=== PATIENT | female | born 1945 | race African-American/Black ===

== ENCOUNTER 2018-07-30 05:04 | Inpatient (IN) | payer MEDICARE, MEDICAID ==
[~2018-07-30] VITALS: Ht 167.6 cm; Wt 98.6 kg
[2018-07-30] VITALS (61 sets, daily range): BP systolic 108–191; BP diastolic 49–94
[2018-07-30 05:34] LABS: BASOPHILS % 1.1 % (0.0-2.0); EOSINOPHILS % 2.4 % (0.0-5.0); HEMATOCRIT. 41.8 % (36.0-48.0); HEMOGLOBIN. 14.2 g/dL (12.0-16.0); LYMPHOCYTES % 25.5 % (20.0-50.0); MEAN CORPUSCULAR HEMOGLOBIN 29.6 pg (28.0-32.0); MEAN CORPUSCULAR VOLUME 87.2 fL (81.0-99.0); MEAN PLATELET VOLUME 9.3 fl (7.4-10.4); MONOCYTES % 9.9 % (2.0-8.0); NEUTROPHILS % 61.1 % (40.0-76.0); PLATELET 242 x1000/uL (130-400); RED BLOOD CELL COUNT 4.79 mill/uL (4.2-5.4); RED CELL DISTRIBUTION WIDTH 14.1 % (11.6-14.6)
[2018-07-30 05:41] LABS: INR 0.9; PROTHROMBIN TIME 9.4 sec (9.1-11.1)
[2018-07-30 05:44] LABS: CHLORIDE 101 mEq/L (98-107); ETHANOL BLOOD < 10 mg/dL
[2018-07-30 05:51] LABS: LDL CHOLESTEROL 138 mg/dL (5-100)
[2018-07-30] MEDS ORDERED: ALTEPLASE 100MG/VIAL IV STA ×2 (05:57→06:32)
[2018-07-30] MEDS ORDERED: ALTEPLASE IV STA (05:57)
[2018-07-30] MEDS ORDERED: ASPIRIN 81MG TABLET PO ONE (06:00)
[2018-07-30] MEDS ORDERED: HYDRALAZINE 20MG/ML VIAL IV ONE (06:30)
[2018-07-30] MEDS ORDERED: ALTEPLASE 81 MG in BAG 1 EACH IV NR (06:45)
[2018-07-30 07:43] LABS: CLARITY URINE CLEAR (CLEAR); COLOR URINE YELLOW (YELLOW); KETONES URINE NEGATIVE (NEGATIVE); LEUKOCYTE ESTERASE URINE NEGATIVE (NEGATIVE); NITRITE URINE NEGATIVE (NEGATIVE); OCCULT BLOOD URINE NEGATIVE (NEGATIVE); PH URINE 5.5 (4.5-8.0); PROTEIN URINE 1+ (NEGATIVE); SPECIFIC GRAVITY URINE 1.005 (1.005-1.030); UROBILINOGEN URINE 0.2 E.U./dL (0.2-1.0)
[2018-07-30 07:56] LABS: *AMPHETAMINES SCREEN URINE NEGATIVE (NEGATIVE); *BARBITURATES SCREEN URINE NEGATIVE (NEGATIVE); *BENZODIAZEPINES SCREEN URINE NEGATIVE (NEGATIVE); *COCAINE SCREEN URINE NEGATIVE (NEGATIVE); CANNABINOID URINE SCREEN NEGATIVE (NEGATIVE); METHADONE URINE SCREEN NEGATIVE (NEGATIVE); OPIATES URINE SCREEN NEGATIVE (NEGATIVE); PHENCYCLIDINE URINE SCREEN NEGATIVE (NEGATIVE)
[2018-07-30] MEDS ORDERED: HYDRALAZINE 20MG/ML VIAL IV PRN (09:30)
[2018-07-30] MEDS ORDERED: ONDANSETRON HCL 4MG/2ML INJ IV PRN (10:30)
[2018-07-30] MEDS ORDERED: NA PHOS,M-B/NA PHOS,DI-BA ENEMA 118ML PR PRN (10:30)
[2018-07-30] MEDS ORDERED: DEXTROSE 50% WATER 50ML SYRINGE IV PRN ×2 (10:30)
[2018-07-30] MEDS ORDERED: DOCUSATE SODIUM 100MG CAPSULE PO PRN (10:30)
[2018-07-30] MEDS ORDERED: GUAIFENESIN 200MG/10ML SUGAR FREE UDC PO PRN (10:30)
[2018-07-30] MEDS ORDERED: IPRATROPIUM/ALBUTEROL 0.5-3(2.5)MG/3ML NEB INH PRN (10:30)
[2018-07-30] MEDS ORDERED: ZOLPIDEM TARTRATE 5MG TABLET PO PRN (10:30)
[2018-07-30] MEDS ORDERED: TRAMADOL 50MG TABLET PO PRN (10:30)
[2018-07-30] MEDS ORDERED: MAGNESIUM/ALUMINUM HYDROXIDE/SIMETHICONE 30ML UDC PO PRN (10:30)
[2018-07-30] MEDS ORDERED: ACETAMINOPHEN 325MG TABLET PO PRN (10:30)
[2018-07-30] MEDS ORDERED: NITROGLYCERIN 0.4MG TABLET SL SL PRN (10:45)
[2018-07-30] MEDS: BLOOD SUGAR DIAGNOSTIC STRIP TEST SCH ×3 (11:30→21:37)
[2018-07-30] MEDS ORDERED: BLOOD SUGAR DIAGNOSTIC STRIP TEST SCH (11:30)
[2018-07-30] MEDS ORDERED: INSULIN LISPRO 100 UNITS/ML SUBCUT SCH (12:00)
[2018-07-30] MEDS: INSULIN LISPRO 100 UNITS/ML SUBCUT SCH ×3 (12:58→21:46)
[2018-07-30] MEDS: CLONIDINE 0.1MG TABLET PO PRN (13:59)
[2018-07-30] MEDS ORDERED: LORAZEPAM 2MG/ML CPJ IV SCH (14:15)
[2018-07-30] MEDS ORDERED: LOVA20TA2 MT (16:01)
[2018-07-30] MEDS ORDERED: HYDR10SY15 PO (16:07)
[2018-07-30] MEDS ORDERED: ASPI-1158 MT (16:08)
[2018-07-30] MEDS ORDERED: LOSA50TA20 MT (16:12)
[2018-07-30] MEDS ORDERED: AMLO10TA80 MT (16:16)
[2018-07-30] MEDS ORDERED: LEVVL SQ (16:18)
[2018-07-30] MEDS ORDERED: GABA-529 MT (16:20)
[2018-07-30] MEDS ORDERED: DORZ10DR17 OP (16:26)
[2018-07-30] MEDS ORDERED: INSU100I7 SQ (16:51)
[2018-07-30] MEDS ORDERED: FLUT16SP15 BOTHNSTRLS (16:55)
[2018-07-30] MEDS ORDERED: LATA2.5D2 EACHEYE (16:58)
[2018-07-30 19:18] LABS: CREATINE KINASE 47 IU/L (26-192); CREATINE KINASE MB FRACTION < 1.0 ng/mL (0.5-3.6); T4 FREE 1.19 ng/dL (0.76-1.46)
[2018-07-30 19:37] LABS: FOLIC ACID (FOLATE) SERUM 18.6 ng/mL (>5.38)
[2018-07-30] MEDS: FAMOTIDINE 20MG TABLET PO SCH (21:37)
[2018-07-30] MEDS: ATORVASTATIN CALCIUM 10MG TABLET PO SCH (21:37)
[2018-07-30] MEDS: DORZOLAMIDE 2% OPHTH 10 ML BOTTLE BOTHEYE SCH (21:37)
[2018-07-30] MEDS: LATANOPROST 0.005% OPHTH DROPS 2.5ML BOTHEYE SCH (21:37)
[2018-07-30] MEDS: INSULIN GLARGINE UD 100 UNITS/ML SYR SUBCUT SCH (21:47)
[2018-07-30 23:33] LABS: CREATINE KINASE 44 IU/L (26-192); CREATINE KINASE MB FRACTION < 1.0 ng/mL (0.5-3.6)
[2018-07-31] VITALS (48 sets, daily range): BP systolic 107–179; BP diastolic 55–88
[2018-07-31] MEDS: BLOOD SUGAR DIAGNOSTIC STRIP TEST SCH ×4 (06:15→21:37)
[2018-07-31] MEDS ORDERED: INSULIN LISPRO 100 UNITS/ML SUBCUT SCH (06:30)
[2018-07-31] MEDS: INSULIN LISPRO 100 UNITS/ML SUBCUT SCH ×6 (06:40→21:37)
[2018-07-31] MEDS: FAMOTIDINE 20MG TABLET PO SCH ×2 (08:38→21:36)
[2018-07-31] MEDS: AMLODIPINE 10MG TABLET PO SCH (08:39)
[2018-07-31] MEDS: DORZOLAMIDE 2% OPHTH 10 ML BOTTLE BOTHEYE SCH ×2 (08:39→21:36)
[2018-07-31] MEDS: LOSARTAN POTASSIUM 50 MG TABLET PO SCH (08:39)
[2018-07-31] MEDS ORDERED: CLOPIDOGREL 75MG TABLET PO SCH (09:00)
[2018-07-31] MEDS ORDERED: ENOXAPARIN 30MG/0.3ML SYR SUBCUT SCH (09:00)
[2018-07-31] MEDS: CLOPIDOGREL 75MG TABLET PO SCH (18:28)
[2018-07-31] MEDS: CLONIDINE 0.1MG TABLET PO PRN (20:47)
[2018-07-31] MEDS: LATANOPROST 0.005% OPHTH DROPS 2.5ML BOTHEYE SCH (21:36)
[2018-07-31] MEDS: ATORVASTATIN CALCIUM 10MG TABLET PO SCH (21:36)
[2018-07-31] MEDS: INSULIN GLARGINE UD 100 UNITS/ML SYR SUBCUT SCH (21:37)
[2018-08-01] VITALS (10 sets, daily range): BP systolic 120–153; BP diastolic 57–80
[2018-08-01] MEDS: BLOOD SUGAR DIAGNOSTIC STRIP TEST SCH ×4 (06:43→21:24)
[2018-08-01] MEDS: INSULIN LISPRO 100 UNITS/ML SUBCUT SCH ×7 (07:40→21:00)
[2018-08-01] MEDS: AMLODIPINE 10MG TABLET PO SCH (09:21)
[2018-08-01] MEDS: FAMOTIDINE 20MG TABLET PO SCH ×2 (09:21→21:06)
[2018-08-01] MEDS: LOSARTAN POTASSIUM 50 MG TABLET PO SCH (09:21)
[2018-08-01] MEDS: DORZOLAMIDE 2% OPHTH 10 ML BOTTLE BOTHEYE SCH ×2 (09:22→21:07)
[2018-08-01] MEDS: CLOPIDOGREL 75MG TABLET PO SCH (09:22)
[2018-08-01] MEDS: ATORVASTATIN CALCIUM 10MG TABLET PO SCH (21:05)
[2018-08-01] MEDS: LATANOPROST 0.005% OPHTH DROPS 2.5ML BOTHEYE SCH (21:07)
[2018-08-01] MEDS: INSULIN GLARGINE UD 100 UNITS/ML SYR SUBCUT SCH (21:20)
[2018-08-02 00:18] VITALS: BP 175/84
[2018-08-02 04:00] VITALS: BP 170/72
[2018-08-02] MEDS: BLOOD SUGAR DIAGNOSTIC STRIP TEST SCH ×2 (07:40→12:40)
[2018-08-02 08:00] VITALS: BP 166/82
[2018-08-02] MEDS: INSULIN LISPRO 100 UNITS/ML SUBCUT SCH ×4 (08:10→13:10)
[2018-08-02] MEDS: FAMOTIDINE 20MG TABLET PO SCH (08:56)
[2018-08-02] MEDS: CLOPIDOGREL 75MG TABLET PO SCH (08:56)
[2018-08-02] MEDS: CLONIDINE 0.1MG TABLET PO PRN (08:57)
[2018-08-02] MEDS: AMLODIPINE 10MG TABLET PO SCH (08:57)
[2018-08-02] MEDS: LOSARTAN POTASSIUM 50 MG TABLET PO SCH (08:57)
[2018-08-02] MEDS: DORZOLAMIDE 2% OPHTH 10 ML BOTTLE BOTHEYE SCH (09:00)
[2018-08-02 12:00] VITALS: BP 150/82
[2018-08-02] MEDS ORDERED: HYDRALAZINE HCL 50MG TABLET PO SCH (14:00)
[2018-08-02 15:32] VITALS: BP 150/82
== END 2018-08-02 16:15 | DRG 45 ==
LOC: ER 05:04 → MICUNO 06:07 → EDBEDREQTM 06:08 → EDBEDREQ 06:08 → EDBEDREQSVC 06:08 → ENRESERV 08:01 → 7WST 08-01 05:21
PROVIDERS: ADMIT Internal Medicine; ATTEND Internal Medicine
DX: I63.9 Cerebral infarction, unspecified (principal); E11.36 Type 2 diabetes mellitus with diabetic cataract; E11.649 Type 2 diabetes mellitus with hypoglycemia without coma; E11.65 Type 2 diabetes mellitus with hyperglycemia; G81.91 Hemiplegia, unspecified affecting right dominant side; I10 Essential (primary) hypertension; E66.9 Obesity, unspecified; Z68.35 Body mass index [BMI] 35.0-35.9, adult; R47.1 Dysarthria and anarthria; R47.01 Aphasia; E78.5 Hyperlipidemia, unspecified; E78.00 Pure hypercholesterolemia, unspecified; E87.6 Hypokalemia; H54.62 Unqualified visual loss, left eye, normal vision right eye; Z79.4 Long term (current) use of insulin; Z82.3 Family history of stroke; Z87.442 Personal history of urinary calculi; Z98.41 Cataract extraction status, right eye; Z79.82 Long term (current) use of aspirin; Z79.899 Other long term (current) drug therapy
CPT/HCPCS: 36415; 70544; 70553; 71045; 80061; 80305; 82550; 82553; 82607; 82746; 82962; 83036; 83721; 84439; 84443; 84481; 84484; 92523; 92610; 93005; 93306; 93880; 93970; 96374; 97112; 97116; 97163; 97166; 97530; 97535; 99291; G0482; J0360; J1815; J2060; J2405; J2997

== ENCOUNTER 2018-09-07 11:59 | Emergency (ER) | payer MEDICARE, MEDICAID ==
[~2018-09-07] VITALS: Ht 167.6 cm; Wt 90.0 kg
[~2018-09-07 11:59] MED LIST: AMLO10TA80 MT; ASPI-1158 MT; DORZ10DR17 OP; FLUT16SP15 BOTHNSTRLS; GABA-529 MT; HYDR10SY15 PO; INSU100I7 SQ; LATA2.5D2 EACHEYE; LEVVL SQ; LOSA50TA20 MT; LOVA20TA2 MT
[2018-09-07] MEDS ORDERED: MORPHINE SULFATE 4 MG/ML CPJ (NOT FOR IM USE) IV ONE (14:45)
[2018-09-07] MEDS ORDERED: MORPHINE SULFATE 10 MG/ML CPJ IV NR (15:09)
[2018-09-07 15:41] LABS: BASOPHILS % 0.5 % (0.0-2.0); EOSINOPHILS % 0.1 % (0.0-5.0); HEMATOCRIT. 36.8 % (36.0-48.0); HEMOGLOBIN. 12.5 g/dL (12.0-16.0); LYMPHOCYTES % 10.5 % (20.0-50.0); MEAN PLATELET VOLUME 9.5 fl (7.4-10.4); MONOCYTES % 7.8 % (2.0-8.0); NEUTROPHILS % 81.1 % (40.0-76.0); PLATELET 284 x1000/uL (130-400); RED BLOOD CELL COUNT 4.18 mill/uL (4.2-5.4); RED CELL DISTRIBUTION WIDTH 14.5 % (11.6-14.6)
[2018-09-07 15:42] LABS: CHLORIDE 102 mEq/L (98-107)
[2018-09-07] MEDS ORDERED: POTASSIUM CHLORIDE 20MEQ TABLET SR PO ONE (16:30)
[2018-09-07 17:57] LABS: CLARITY URINE CLOUDY (CLEAR); COLOR URINE YELLOW (YELLOW); KETONES URINE TRACE (NEGATIVE); LEUKOCYTE ESTERASE URINE TRACE (NEGATIVE); NITRITE URINE NEGATIVE (NEGATIVE); OCCULT BLOOD URINE NEGATIVE (NEGATIVE); PROTEIN URINE 3+ (NEGATIVE); SPECIFIC GRAVITY URINE 1.014 (1.005-1.030); UROBILINOGEN URINE 0.2 E.U./dL (0.2-1.0)
[2018-09-07 18:30] VITALS: BP 189/77
== END 2018-09-07 19:34 | disposition home or self-care (01) ==
LOC: ER 12:50
DX: K59.00 Constipation, unspecified (principal); M54.5 Low back pain; E11.9 Type 2 diabetes mellitus without complications; I10 Essential (primary) hypertension; Z86.73 Personal history of transient ischemic attack (TIA), and cerebral infarction without residual deficits; Z79.899 Other long term (current) drug therapy
CPT/HCPCS: 36415; 74018; 80053; 81003; 82962; 85025; 93005; 96374; 99284; J2270

== ENCOUNTER 2018-11-08 10:44 | Emergency (ER) | payer MEDICARE, MEDICAID ==
[~2018-11-08] VITALS: Ht 170.2 cm; Wt 102.0 kg
[2018-11-08] MEDS ORDERED: MORPHINE SULFATE 4 MG/ML CPJ (NOT FOR IM USE) IV STA (11:37)
[2018-11-08] MEDS ORDERED: SODIUM CHLORIDE 0.9% 1,000 ML IV ONE (11:37)
[2018-11-08] MEDS ORDERED: ONDANSETRON HCL 4MG/2ML INJ IV STA (11:37)
[2018-11-08 12:20] LABS: BASOPHILS % 0.5 % (0.0-2.0); EOSINOPHILS % 0.4 % (0.0-5.0); HEMATOCRIT. 36.4 % (36.0-48.0); LYMPHOCYTES % 8.8 % (20.0-50.0); MEAN CORPUSCULAR HEMOGLOBIN 29.5 pg (28.0-32.0); MEAN CORPUSCULAR VOLUME 89.3 fL (81.0-99.0); MEAN PLATELET VOLUME 9.3 fl (7.4-10.4); MONOCYTES % 7.3 % (2.0-8.0); PLATELET 223 x1000/uL (130-400); RED BLOOD CELL COUNT 4.08 mill/uL (4.2-5.4); RED CELL DISTRIBUTION WIDTH 15.1 % (11.6-14.6)
[2018-11-08 12:28] LABS: CHLORIDE 106 mEq/L (98-107)
[2018-11-08 16:11] LABS: CLARITY URINE CLEAR (CLEAR); COLOR URINE YELLOW (YELLOW); KETONES URINE NEGATIVE (NEGATIVE); LEUKOCYTE ESTERASE URINE NEGATIVE (NEGATIVE); NITRITE URINE NEGATIVE (NEGATIVE); OCCULT BLOOD URINE NEGATIVE (NEGATIVE); PH URINE 7.5 (4.5-8.0); PROTEIN URINE 1+ (NEGATIVE); SPECIFIC GRAVITY URINE 1.006 (1.005-1.030); UROBILINOGEN URINE 0.2 E.U./dL (0.2-1.0)
[2018-11-08 18:52] VITALS: BP 171/83
== END 2018-11-08 18:54 | disposition home or self-care (01) ==
LOC: ER 10:44
DX: R10.13 Epigastric pain (principal); I31.3 Pericardial effusion (noninflammatory); E87.6 Hypokalemia; E11.65 Type 2 diabetes mellitus with hyperglycemia; I10 Essential (primary) hypertension; N20.0 Calculus of kidney; K57.90 Diverticulosis of intestine, part unspecified, without perforation or abscess without bleeding; Z79.4 Long term (current) use of insulin; Z86.73 Personal history of transient ischemic attack (TIA), and cerebral infarction without residual deficits; Z79.82 Long term (current) use of aspirin
CPT/HCPCS: 36415; 74176; 80053; 81003; 82962; 83690; 85025; 85610; 96361; 96374; 96375; 99284; J2270; J2405; J7030

== ENCOUNTER 2019-01-27 19:32 | Emergency (ER) | payer MEDICARE, MEDICAID ==
[~2019-01-27] VITALS: Ht 152.4 cm; Wt 189.0 kg
[2019-01-28 00:35] VITALS: BP 166/99
== END 2019-01-27 23:27 | disposition home or self-care (01) ==
LOC: ER 19:32
DX: H93.13 Tinnitus, bilateral (principal); E11.9 Type 2 diabetes mellitus without complications; I10 Essential (primary) hypertension; Z79.82 Long term (current) use of aspirin; Z79.899 Other long term (current) drug therapy; Z79.4 Long term (current) use of insulin; Z79.84 Long term (current) use of oral hypoglycemic drugs
CPT/HCPCS: 99283

== ENCOUNTER 2019-03-26 16:38 | Emergency (ER) | payer MEDICARE, MEDICAID ==
[~2019-03-26] VITALS: Ht 152.4 cm; Wt 87.0 kg
[~2019-03-26 16:38] MED LIST changes: -LOSA50TA20 MT; +LOSA50TA41 MT
[2019-03-26] MEDS ORDERED: ACETAMINOPHEN 325MG TABLET PO ONE (21:15)
[2019-03-26 21:16] LABS: CLARITY URINE TURBID (CLEAR); COLOR URINE YELLOW (YELLOW); KETONES URINE NEGATIVE (NEGATIVE); LEUKOCYTE ESTERASE URINE 3+ (NEGATIVE); NITRITE URINE NEGATIVE (NEGATIVE); OCCULT BLOOD URINE NEGATIVE (NEGATIVE); PH URINE 6.5 (4.5-8.0); PROTEIN URINE 3+ (NEGATIVE); SPECIFIC GRAVITY URINE 1.011 (1.005-1.030); UROBILINOGEN URINE 0.2 E.U./dL (0.2-1.0)
[2019-03-26 22:41] VITALS: BP 154/77
== END 2019-03-26 22:42 | disposition home or self-care (01) ==
LOC: ER 16:38
DX: G89.29 Other chronic pain (principal); M54.5 Low back pain; K59.00 Constipation, unspecified; E11.9 Type 2 diabetes mellitus without complications; I10 Essential (primary) hypertension; H40.9 Unspecified glaucoma; Z79.82 Long term (current) use of aspirin; Z79.899 Other long term (current) drug therapy
CPT/HCPCS: 74018; 99284

== ENCOUNTER 2019-04-04 08:27 | Inpatient (IN) | payer MEDICARE, MEDICAID ==
[~2019-04-04] VITALS: Ht 152.4 cm; Wt 89.4 kg
[2019-04-04 09:28] LABS: CHLORIDE 105 mEq/L (98-107)
[2019-04-04 09:30] LABS: BASOPHILS % 0.6 % (0.0-2.0); HEMATOCRIT. 34.8 % (36.0-48.0); HEMOGLOBIN. 11.9 g/dL (12.0-16.0); LYMPHOCYTES % 23.5 % (20.0-50.0); MEAN CORPUSCULAR HEMOGLOBIN 29.6 pg (28.0-32.0); MEAN CORPUSCULAR VOLUME 86.8 fL (81.0-99.0); MEAN PLATELET VOLUME 8.9 fl (7.4-10.4); MONOCYTES % 8.9 % (2.0-8.0); PLATELET 228 x1000/uL (130-400); RED BLOOD CELL COUNT 4.01 mill/uL (4.2-5.4); RED CELL DISTRIBUTION WIDTH 14.5 % (11.6-14.6)
[2019-04-04 09:46] LABS: PROTHROMBIN TIME 9.8 sec (9.6-11.0)
[2019-04-04] MEDS ORDERED: POTASSIUM CHLORIDE 20MEQ TABLET SR PO ONE ×2 (10:15→15:00)
[2019-04-04 10:56] LABS: CLARITY URINE CLOUDY (CLEAR); COLOR URINE YELLOW (YELLOW); KETONES URINE NEGATIVE (NEGATIVE); LEUKOCYTE ESTERASE URINE 2+ (NEGATIVE); NITRITE URINE NEGATIVE (NEGATIVE); OCCULT BLOOD URINE NEGATIVE (NEGATIVE); PROTEIN URINE 1+ (NEGATIVE); SPECIFIC GRAVITY URINE 1.016 (1.005-1.030); UROBILINOGEN URINE 0.2 E.U./dL (0.2-1.0)
[2019-04-04] MEDS ORDERED: IOHEXOL-300 100 ML BOTTLE ONE (11:05)
[2019-04-04] MEDS ORDERED: ONDANSETRON HCL 4MG/2ML INJ IV ONE (11:45)
[2019-04-04] MEDS ORDERED: ONDANSETRON HCL 4MG/2ML INJ IV PRN (12:00)
[2019-04-04] MEDS ORDERED: DEXTROSE 50% WATER 50ML SYRINGE IV PRN (12:00)
[2019-04-04] MEDS ORDERED: KETOROLAC 30MG/ML VIAL IV PRN (12:00)
[2019-04-04] MEDS ORDERED: ACETAMINOPHEN 325MG TABLET PO PRN (12:00)
[2019-04-04] MEDS ORDERED: HYDRALAZINE HCL 10MG TABLET PO ONE (12:00)
[2019-04-04] MEDS ORDERED: CLONIDINE 0.1MG TABLET PO PRN (12:00)
[2019-04-04] MEDS ORDERED: CEFTRIAXONE 1 G PREMIX 50 ML IV SCH (12:31)
[2019-04-04] MEDS ORDERED: OXYCODONE HCL/ACETAMINOPHEN 5/325MG TABLET PO PRN (13:00)
[2019-04-04] MEDS: BLOOD SUGAR DIAGNOSTIC STRIP TEST SCH ×3 (14:47→21:35)
[2019-04-04] MEDS: INSULIN LISPRO 100 UNITS/ML SUBCUT SCH ×2 (14:51→21:00)
[2019-04-04] MEDS: MORPHINE SULFATE 2 MG/ML CPJ (NOT FOR IM USE) IV PRN (15:04)
[2019-04-04] MEDS ORDERED: SODIUM CHLORIDE 0.9% 1,000 ML IV NR (15:13)
[2019-04-04 15:59] VITALS: BP 167/67
[2019-04-04 16:01] VITALS: BP 167/69
[2019-04-04] MEDS ORDERED: POTASSIUM CHLORIDE INJ 40 MEQ in DEXT 5% WATER 250 ML IV NR (16:30)
[2019-04-04] MEDS: ENOXAPARIN 40MG/0.4ML SYR SUBCUT SCH (17:26)
[2019-04-04 20:00] VITALS: BP 144/68
[2019-04-04] MEDS: AMLODIPINE 5MG TABLET PO SCH ×2 (21:00→21:30)
[2019-04-04] MEDS ORDERED: FAMOTIDINE 20MG TABLET PO SCH (21:00)
[2019-04-04] MEDS ORDERED: HYDR-4135 PO (21:18)
[2019-04-04] MEDS ORDERED: NORT10CA PO (21:19)
[2019-04-04] MEDS ORDERED: CLOP75TA4 PO (21:20)
[2019-04-04] MEDS ORDERED: CHOL50004 PO (21:22)
[2019-04-04] MEDS ORDERED: DOCU-266 PO (21:23)
[2019-04-05] VITALS: BP 140/100
[2019-04-05] MEDS ORDERED: NORTRIPTYLINE HCL 10MG CAPSULE PO SCH
[2019-04-05] MEDS ORDERED: LATANOPROST 0.005% OPHTH DROPS 2.5ML EACHEYE SCH
[2019-04-05] MEDS: BRIMONIDINE 0.2% OPHTH DROPS 5ML EACHEYE SCH ×3 (00:08→14:33)
[2019-04-05] MEDS: DORZOLAM/TIMOLOL 2.23/0.68% OPHTH DROPS 10ML EACHEYE SCH ×2 (00:08→09:21)
[2019-04-05] MEDS: MORPHINE SULFATE 2 MG/ML CPJ (NOT FOR IM USE) IV PRN (02:29)
[2019-04-05 04:00] VITALS: BP 166/67
[2019-04-05] MEDS: HYDRALAZINE HCL 50MG TABLET PO SCH ×2 (05:43→14:36)
[2019-04-05] MEDS: GABAPENTIN 100MG CAPSULE PO SCH ×2 (05:43→14:36)
[2019-04-05] MEDS: BLOOD SUGAR DIAGNOSTIC STRIP TEST SCH ×2 (05:44→12:45)
[2019-04-05 07:47] LABS: BASOPHILS % 0.6 % (0.0-2.0); EOSINOPHILS % 2.8 % (0.0-5.0); HEMATOCRIT. 33.3 % (36.0-48.0); HEMOGLOBIN. 11.3 g/dL (12.0-16.0); LYMPHOCYTES % 36.3 % (20.0-50.0); MEAN CORPUSCULAR HEMOGLOBIN 29.7 pg (28.0-32.0); MEAN CORPUSCULAR VOLUME 87.9 fL (81.0-99.0); MEAN PLATELET VOLUME 9.5 fl (7.4-10.4); MONOCYTES % 11.4 % (2.0-8.0); NEUTROPHILS % 48.9 % (40.0-76.0); PLATELET 222 x1000/uL (130-400); RED BLOOD CELL COUNT 3.79 mill/uL (4.2-5.4)
[2019-04-05] MEDS: INSULIN LISPRO 100 UNITS/ML SUBCUT SCH ×2 (07:49→12:45)
[2019-04-05 07:54] LABS: CHLORIDE 108 mEq/L (98-107)
[2019-04-05 08:00] VITALS: BP 138/51
[2019-04-05] MEDS ORDERED: FAMOTIDINE 20MG TABLET PO SCH (11:30)
[2019-04-05 12:00] VITALS: BP 143/55
[2019-04-05] MEDS ORDERED: CEFTRIAXONE 1 G PREMIX 50 ML IV SCH ×2 (12:00→14:00)
[2019-04-05 15:09] LABS: *AMPHETAMINES SCREEN URINE NEGATIVE (NEGATIVE)
[2019-04-05 15:10] LABS: *BARBITURATES SCREEN URINE NEGATIVE (NEGATIVE); *BENZODIAZEPINES SCREEN URINE NEGATIVE (NEGATIVE); *COCAINE SCREEN URINE NEGATIVE (NEGATIVE); METHADONE URINE SCREEN NEGATIVE (NEGATIVE); OPIATES URINE SCREEN NEGATIVE (NEGATIVE); PHENCYCLIDINE URINE SCREEN NEGATIVE (NEGATIVE)
[2019-04-05 15:11] LABS: CANNABINOID URINE SCREEN NEGATIVE (NEGATIVE)
[2019-04-05 16:00] VITALS: BP 149/55
[2019-04-05] MEDS: ENOXAPARIN 40MG/0.4ML SYR SUBCUT SCH (16:33)
[2019-04-05 16:57] VITALS: BP 134/65
== END 2019-04-05 17:45 | disposition home or self-care (01) | DRG 720 ==
LOC: ER 08:27 → 7WST 11:37 → ENRESERV 14:15
PROVIDERS: ADMIT Internal Medicine; ATTEND Internal Medicine
DX: A41.9 Sepsis, unspecified organism (principal); I31.3 Pericardial effusion (noninflammatory); E11.9 Type 2 diabetes mellitus without complications; E87.6 Hypokalemia; E66.9 Obesity, unspecified; K21.9 Gastro-esophageal reflux disease without esophagitis; K57.30 Diverticulosis of large intestine without perforation or abscess without bleeding; I10 Essential (primary) hypertension; K59.00 Constipation, unspecified; N39.0 Urinary tract infection, site not specified; Z86.73 Personal history of transient ischemic attack (TIA), and cerebral infarction without residual deficits; Z71.3 Dietary counseling and surveillance; Z79.899 Other long term (current) drug therapy; Z68.38 Body mass index [BMI] 38.0-38.9, adult
CPT/HCPCS: 36415; 71045; 74177; 80048; 80305; 82962; 83605; 83880; 84132; 84484; 93005; 93306; 93970; 96365; 96375; 97161; 99285; J0696; J1650; J1885; J2270; J2405; J3480; J7050; J7060; Q9967

== ENCOUNTER 2019-04-28 07:43 | Emergency (ER) | payer MEDICARE, MEDICAID ==
[~2019-04-28] VITALS: Ht 152.4 cm; Wt 88.0 kg
[~2019-04-28 07:43] MED LIST changes: +CHOL50004 PO; +CLOP75TA4 PO; +DOCU-266 PO; +HYDR-4135 PO; -INSU100I7 SQ; -LEVVL SQ; +NORT10CA PO
[2019-04-28] MEDS ORDERED: HYDROCODONE/ACETAMINOPHEN 5/325MG TABLET PO ONE (10:00)
[2019-04-28 11:15] LABS: CLARITY URINE TURBID (CLEAR); COLOR URINE DARK YELLOW (YELLOW); KETONES URINE TRACE (NEGATIVE); LEUKOCYTE ESTERASE URINE 2+ (NEGATIVE); NITRITE URINE NEGATIVE (NEGATIVE); OCCULT BLOOD URINE NEGATIVE (NEGATIVE); PROTEIN URINE 2+ (NEGATIVE); SPECIFIC GRAVITY URINE 1.017 (1.005-1.030); UROBILINOGEN URINE 0.2 E.U./dL (0.2-1.0)
[2019-04-28 12:14] VITALS: BP 131/70
== END 2019-04-28 12:15 | disposition home or self-care (01) ==
LOC: ER 07:57
DX: N39.0 Urinary tract infection, site not specified (principal); K59.00 Constipation, unspecified; M54.9 Dorsalgia, unspecified; G89.29 Other chronic pain; M54.5 Low back pain; E11.9 Type 2 diabetes mellitus without complications; I10 Essential (primary) hypertension; H40.9 Unspecified glaucoma; Z86.73 Personal history of transient ischemic attack (TIA), and cerebral infarction without residual deficits; Z79.899 Other long term (current) drug therapy
CPT/HCPCS: 74018; 99284

== ENCOUNTER 2019-05-28 21:50 | Emergency (ER) | payer MEDICARE, MEDICAID ==
[~2019-05-28] VITALS: Ht 152.4 cm; Wt 84.0 kg
[~2019-05-28 21:50] MED LIST changes: +BRIM5DRO6 EACHEYE; +CHOL100044 MT; +CLON0.1T MT; +CLOP75TA33 MT; +DOCU-266 MT; +DORZ10DR8 EACHEYE; +GABA-531 MT; -HYDR-4135 PO; +HYDR100T26 MT; -HYDR10SY15 PO; +HYDR25TA MT; +LOSA100T32 MT; -LOVA20TA2 MT; +NORT10CA MT; -NORT10CA PO
[2019-05-28] MEDS ORDERED: KETOROLAC 30MG/ML VIAL IV STA (22:59)
[2019-05-28] MEDS ORDERED: DEXAMETHASONE 10 MG/ML VIAL IV ONE (23:00)
[2019-05-29] MEDS ORDERED: LABETALOL 5MG/ML SYR 20 MG/4 ML SYRINGE IV ONE (01:00)
[2019-05-29] MEDS ORDERED: HYDROCODONE/ACETAMINOPHEN 10/325MG TABLET PO ONE (05:45)
[2019-05-29 06:19] VITALS: BP 196/79
== END 2019-05-29 06:40 | disposition home or self-care (01) ==
LOC: ER 21:50
DX: M48.00 Spinal stenosis, site unspecified (principal); M54.16 Radiculopathy, lumbar region
CPT/HCPCS: 82962; 96374; 96375; 99283; J1100; J1885; J3490

== ENCOUNTER 2019-11-04 12:48 | Inpatient (IN) | payer MEDICARE, MEDICAID ==
[~2019-11-04] VITALS: Ht 152.4 cm; Wt 98.4 kg
[2019-11-04] MEDS ORDERED: MECLIZINE 25MG TABLET PO ONE (14:00)
[2019-11-04] MEDS ORDERED: ONDANSETRON HCL 4MG/2ML INJ IV ONE (14:00)
[2019-11-04 14:09] LABS: BASOPHILS % 0.7 % (0.0-2.0); EOSINOPHILS % 1.8 % (0.0-5.0); HEMATOCRIT. 39.2 % (36.0-48.0); HEMOGLOBIN. 13.1 g/dL (12.0-16.0); LYMPHOCYTES % 24.1 % (20.0-50.0); MEAN CORPUSCULAR HEMOGLOBIN 29.7 pg (28.0-32.0); MEAN CORPUSCULAR VOLUME 88.5 fL (81.0-99.0); MEAN PLATELET VOLUME 9.9 fl (7.4-10.4); MONOCYTES % 8.9 % (2.0-8.0); NEUTROPHILS % 64.5 % (40.0-76.0); PLATELET 222 x1000/uL (130-400); RED BLOOD CELL COUNT 4.43 mill/uL (4.2-5.4); RED CELL DISTRIBUTION WIDTH 13.6 % (11.6-14.6)
[2019-11-04 14:12] LABS: CHLORIDE 104 mEq/L (98-107)
[2019-11-04 14:15] LABS: INR 0.9; PROTHROMBIN TIME 9.4 sec (9.6-11.0)
[2019-11-04 14:16] LABS: ETHANOL BLOOD < 10 mg/dL
[2019-11-04 14:19] LABS: LDL CHOLESTEROL 194 mg/dL (5-100)
[2019-11-04] MEDS ORDERED: IOHEXOL-350 100 ML BOTTLE ONE (14:54)
[2019-11-04] MEDS ORDERED: POTASSIUM CHLORIDE 20MEQ TABLET SR PO ONE (17:45)
[2019-11-04] MEDS ORDERED: GUAIFENESIN 200MG/10ML SUGAR FREE UDC PO PRN (19:45)
[2019-11-04] MEDS ORDERED: DIPHENHYDRAMINE 50MG/ML VIAL IV PRN (19:45)
[2019-11-04] MEDS ORDERED: DEXTROSE 50% WATER 50ML SYRINGE IV PRN (19:45)
[2019-11-04] MEDS ORDERED: ACETAMINOPHEN 325MG TABLET PO PRN (19:45)
[2019-11-04] MEDS ORDERED: ONDANSETRON HCL 4MG/2ML INJ IV PRN (19:45)
[2019-11-04] MEDS ORDERED: IPRATROPIUM/ALBUTEROL 0.5-3(2.5)MG/3ML NEB NEB PRN (19:45)
[2019-11-04] MEDS ORDERED: HYDRALAZINE 20MG/ML VIAL IV PRN (19:45)
[2019-11-04] MEDS ORDERED: CLONIDINE 0.1MG TABLET PO PRN (19:45)
[2019-11-04] MEDS ORDERED: MAGNESIUM/ALUMINUM HYDROXIDE/SIMETHICONE 30ML UDC PO PRN (19:45)
[2019-11-04] MEDS ORDERED: DOCUSATE SODIUM 100MG CAPSULE PO PRN (19:45)
[2019-11-04] MEDS ORDERED: NA PHOS,M-B/NA PHOS,DI-BA ENEMA 118ML PR PRN (19:45)
[2019-11-04] MEDS ORDERED: BLOOD SUGAR DIAGNOSTIC STRIP TEST SCH (21:00)
[2019-11-04] MEDS ORDERED: MORPHINE SULFATE 2 MG/ML CPJ (NOT FOR IM USE) IV PRN (21:41)
[2019-11-04] MEDS ORDERED: LORAZEPAM 2MG/ML CPJ IV PRN (21:41)
[2019-11-04] MEDS: INSULIN LISPRO 100 UNITS/ML SUBCUT SCH (23:02)
[2019-11-04 23:30] VITALS: BP 118/76
[2019-11-05 02:27] LABS: CREATINE KINASE 51 IU/L (26-192)
[2019-11-05 02:28] LABS: CREATINE KINASE MB FRACTION < 1.0 ng/mL (0.5-3.6)
[2019-11-05 04:00] VITALS: BP 154/65
[2019-11-05] MEDS: HYDROCODONE/ACETAMINOPHEN 10/325MG TABLET PO PRN ×2 (04:16→20:57)
[2019-11-05] MEDS ORDERED: ENOXAPARIN 40MG/0.4ML SYR SUBCUT SCH (06:00)
[2019-11-05] MEDS: SODIUM CHLORIDE 0.9% INJ 3ML FLUSH IVF SCH ×3 (06:36→20:58)
[2019-11-05] MEDS: INSULIN LISPRO 100 UNITS/ML SUBCUT SCH ×4 (06:40→21:01)
[2019-11-05 07:53] LABS: CLARITY URINE CLEAR (CLEAR); COLOR URINE YELLOW (YELLOW); KETONES URINE NEGATIVE (NEGATIVE); LEUKOCYTE ESTERASE URINE NEGATIVE (NEGATIVE); NITRITE URINE NEGATIVE (NEGATIVE); OCCULT BLOOD URINE NEGATIVE (NEGATIVE); PH URINE 6.5 (4.5-8.0); PROTEIN URINE 1+ (NEGATIVE); SPECIFIC GRAVITY URINE 1.027 (1.005-1.030); UROBILINOGEN URINE 0.2 E.U./dL (0.2-1.0)
[2019-11-05 08:00] VITALS: BP 161/64
[2019-11-05 08:09] LABS: *AMPHETAMINES SCREEN URINE NEGATIVE (NEGATIVE)
[2019-11-05 08:10] LABS: *BARBITURATES SCREEN URINE NEGATIVE (NEGATIVE); *BENZODIAZEPINES SCREEN URINE NEGATIVE (NEGATIVE); *COCAINE SCREEN URINE NEGATIVE (NEGATIVE); CANNABINOID URINE SCREEN NEGATIVE (NEGATIVE); METHADONE URINE SCREEN NEGATIVE (NEGATIVE); OPIATES URINE SCREEN PRESUMTIVE POSITIVE (NEGATIVE)
[2019-11-05 08:11] LABS: PHENCYCLIDINE URINE SCREEN NEGATIVE (NEGATIVE)
[2019-11-05] MEDS: BRIMONIDINE 0.2% OPHTH DROPS 5ML BOTHEYE SCH ×2 (10:46→20:46)
[2019-11-05] MEDS: DORZOLAMIDE 2% OPHTH 10 ML BOTTLE BOTHEYE SCH ×2 (10:46→20:46)
[2019-11-05 11:10] LABS: BG BASE EXCESS -0.4 mmol/L (-2.0-2.0); BG CARBOXYHEMOGLOBIN 0.4 % (0.5-1.5); BG DEOXYHEMOGLOBIN 2.1 % (0.0-5.0); BG FRACTION INSPIRED OXYGEN 21; BG HCO3 ACT 23.1 mmol/L (22.0-26.0); BG METHEMOGLOBIN 0.1 % (0.0-1.5); BG OXYGEN SATURATION 97.9 % (92.0-98.5); BG OXYHEMOGLOBIN 97.4 % (94.0-97.0); BG PCO2 33.8 mmHg (35.0-45.0); BG PH 7.452 (7.350-7.450); BG PO2 107.4 mmHg (75.0-100.0); BG SAMPLE SITE RIGHT RADIAL; BG TOTAL HEMOGLOBIN 12.1 g/dL (12.0-18.0); BG VENT MODE ROOM AIR
[2019-11-05 11:20] LABS: BASOPHILS % 0.7 % (0.0-2.0); EOSINOPHILS % 2.7 % (0.0-5.0); HEMATOCRIT. 35.4 % (36.0-48.0); HEMOGLOBIN. 11.8 g/dL (12.0-16.0); LYMPHOCYTES % 25.5 % (20.0-50.0); MEAN CORPUSCULAR HEMOGLOBIN 30.1 pg (28.0-32.0); MEAN CORPUSCULAR VOLUME 89.9 fL (81.0-99.0); MEAN PLATELET VOLUME 10.1 fl (7.4-10.4); MONOCYTES % 11.3 % (2.0-8.0); NEUTROPHILS % 59.8 % (40.0-76.0); PLATELET 203 x1000/uL (130-400); RED BLOOD CELL COUNT 3.93 mill/uL (4.2-5.4); RED CELL DISTRIBUTION WIDTH 13.5 % (11.6-14.6)
[2019-11-05] MEDS ORDERED: DOCUSATE SODIUM 100MG CAPSULE PO PRN ×2 (11:30)
[2019-11-05 12:00] VITALS: BP 117/64
[2019-11-05 12:08] LABS: CHLORIDE 107 mEq/L (98-107)
[2019-11-05] MEDS ORDERED: BLOOD SUGAR DIAGNOSTIC STRIP TEST SCH (12:10)
[2019-11-05 12:18] LABS: CREATINE KINASE MB FRACTION < 1.0 ng/mL (0.5-3.6); LDL CHOLESTEROL 182 mg/dL (5-100)
[2019-11-05 12:19] LABS: CREATINE KINASE 45 IU/L (26-192); HDL CHOLESTEROL 51 mg/dL (40-59); T4 FREE 1.18 ng/dL (0.76-1.46)
[2019-11-05] MEDS: BLOOD SUGAR DIAGNOSTIC STRIP TEST SCH ×3 (12:42→19:50)
[2019-11-05] MEDS: CLOPIDOGREL 75MG TABLET PO SCH (12:49)
[2019-11-05] MEDS: CHOLECALCIFEROL (D3) 1000 UNIT TABLET PO SCH (12:49)
[2019-11-05] MEDS: AMLODIPINE 10MG TABLET PO SCH (12:49)
[2019-11-05] MEDS: ASPIRIN 81MG EC TABLET PO SCH (12:50)
[2019-11-05] MEDS: HYDROCHLOROTHIAZIDE 25MG TABLET PO SCH (12:50)
[2019-11-05] MEDS: HYDRALAZINE HCL 100MG TABLET PO SCH ×2 (13:50→20:56)
[2019-11-05 16:00] VITALS: BP 139/67
[2019-11-05] MEDS ORDERED: DORZOLAMIDE 2% OPHTH 10 ML BOTTLE EACHEYE SCH (17:00)
[2019-11-05] MEDS ORDERED: CLONIDINE 0.1MG TABLET PO SCH (17:00)
[2019-11-05] MEDS: ENOXAPARIN 30MG/0.3ML SYR SUBCUT SCH (17:23)
[2019-11-05 20:00] VITALS: BP 147/69
[2019-11-05] MEDS ORDERED: LATANOPROST 0.005% OPHTH DROPS 2.5ML BOTHEYE SCH (21:00)
[2019-11-05] MEDS ORDERED: NON FORMULARY PATIENT HOME MED XX SCH (21:00)
[2019-11-05] MEDS ORDERED: LATANOPROST 0.005% OPHTH DROPS 2.5ML EACHEYE SCH (21:00)
[2019-11-05] MEDS ORDERED: ATORVASTATIN CALCIUM 20MG TABLET PO SCH ×2 (21:00)
[2019-11-06] VITALS: BP 142/63
[2019-11-06 04:00] VITALS: BP 160/63
[2019-11-06] MEDS: BLOOD SUGAR DIAGNOSTIC STRIP TEST SCH ×2 (05:32→11:30)
[2019-11-06] MEDS: HYDRALAZINE HCL 100MG TABLET PO SCH ×2 (05:34→13:05)
[2019-11-06] MEDS: ENOXAPARIN 30MG/0.3ML SYR SUBCUT SCH (05:34)
[2019-11-06] MEDS: INSULIN LISPRO 100 UNITS/ML SUBCUT SCH ×2 (05:38→12:40)
[2019-11-06 08:00] VITALS: BP 135/81
[2019-11-06] MEDS: HYDROCHLOROTHIAZIDE 25MG TABLET PO SCH (08:44)
[2019-11-06] MEDS: BRIMONIDINE 0.2% OPHTH DROPS 5ML BOTHEYE SCH (08:49)
[2019-11-06] MEDS: SODIUM CHLORIDE 0.9% INJ 3ML FLUSH IVF SCH ×2 (08:50→13:05)
[2019-11-06] MEDS: DORZOLAMIDE 2% OPHTH 10 ML BOTTLE BOTHEYE SCH (08:50)
[2019-11-06] MEDS: ASPIRIN 81MG EC TABLET PO SCH (08:50)
[2019-11-06] MEDS: AMLODIPINE 10MG TABLET PO SCH (08:51)
[2019-11-06] MEDS: CLOPIDOGREL 75MG TABLET PO SCH (08:51)
[2019-11-06] MEDS: HYDROCODONE/ACETAMINOPHEN 10/325MG TABLET PO PRN (08:51)
[2019-11-06] MEDS: CHOLECALCIFEROL (D3) 1000 UNIT TABLET PO SCH (08:51)
[2019-11-06] MEDS ORDERED: LOSARTAN POTASSIUM 100 MG TABLET PO SCH (09:00)
[2019-11-06] MEDS ORDERED: CLOPIDOGREL 75MG TABLET PO SCH (09:00)
[2019-11-06] MEDS ORDERED: LOSARTAN POTASSIUM 50 MG TABLET PO SCH (09:00)
[2019-11-06] MEDS ORDERED: AMLODIPINE 10MG TABLET PO SCH (09:00)
[2019-11-06 10:38] VITALS: BP 135/81
[2019-11-06 12:16] VITALS: BP 164/72
[2019-11-06] MEDS ORDERED: FLUTICASONE PROPIONATE 50MCG/SPRAY BOTTLE BOTHNSTRLS SCH (13:00)
== END 2019-11-06 13:35 | disposition home health service (06) | DRG 47 ==
LOC: ER 13:44 → 8WST 17:46 → EDBEDREQSVC 17:49 → EDBEDREQ 17:49 → ENRESERV 21:58
PROVIDERS: ADMIT Internal Medicine; ATTEND Internal Medicine
DX: G45.9 Transient cerebral ischemic attack, unspecified (principal); I11.0 Hypertensive heart disease with heart failure; I50.9 Heart failure, unspecified; E11.9 Type 2 diabetes mellitus without complications; E66.01 Morbid (severe) obesity due to excess calories; I25.10 Atherosclerotic heart disease of native coronary artery without angina pectoris; R42 Dizziness and giddiness; E78.5 Hyperlipidemia, unspecified; M19.90 Unspecified osteoarthritis, unspecified site; Z79.02 Long term (current) use of antithrombotics/antiplatelets; Z68.41 Body mass index [BMI] 40.0-44.9, adult; Z79.899 Other long term (current) drug therapy; Z71.3 Dietary counseling and surveillance; Z79.82 Long term (current) use of aspirin
CPT/HCPCS: 36415; 36600; 70496; 71045; 80053; 80061; 80305; 80320; 81003; 82375; 82550; 82553; 82805; 82962; 83721; 84439; 84443; 84484; 85025; 85384; 93005; 93970; 96374; 97116; 97162; 97166; 99291; J1650; J1815; J2405; J8597; Q9967; G0480

== ENCOUNTER 2021-08-07 02:54 | Emergency (ER) | payer MEDICARE, MEDICAID ==
[~2021-08-07] VITALS: Ht 167.6 cm; Wt 105.0 kg
[~2021-08-07 02:54] MED LIST changes: -ASPI-1158 MT; +ASPI-1406 MT; -CHOL100044 MT; -CLOP75TA4 PO; -DOCU-266 MT; -DOCU-266 PO; +DOCU-347 PO; -DORZ10DR8 EACHEYE; -GABA-531 MT; -HYDR100T26 MT; +LATA2.5D14 EACHEYE; -LATA2.5D2 EACHEYE; -LOSA100T32 MT
[2021-08-07] MEDS ORDERED: SODIUM CHLORIDE 0.9% 1,000 ML IV ONE (03:15)
[2021-08-07] MEDS ORDERED: MORPHINE SULFATE 4 MG/ML CPJ (NOT FOR IM USE) IV STA (03:20)
[2021-08-07] MEDS ORDERED: ONDANSETRON HCL 4MG/2ML INJ IV STA (03:20)
[2021-08-07] MEDS ORDERED: CLONIDINE 0.2MG TABLET PO ONE (03:30)
[2021-08-07 04:04] LABS: CLARITY URINE CLEAR (CLEAR); COLOR URINE YELLOW (YELLOW); KETONES URINE NEGATIVE (NEGATIVE); LEUKOCYTE ESTERASE URINE NEGATIVE (NEGATIVE); NITRITE URINE NEGATIVE (NEGATIVE); OCCULT BLOOD URINE NEGATIVE (NEGATIVE); PROTEIN URINE 2+ (NEGATIVE); SPECIFIC GRAVITY URINE 1.011 (1.005-1.030)
[2021-08-07 04:53] LABS: BASOPHILS % 0.6 % (0.0-2.0); EOSINOPHILS % 2.4 % (0.0-5.0); HEMATOCRIT. 34.4 % (36.0-48.0); HEMOGLOBIN. 11.3 g/dL (12.0-16.0); LYMPHOCYTES % 18.5 % (20.0-50.0); MEAN CORPUSCULAR HEMOGLOBIN 29.5 pg (28.0-32.0); MEAN CORPUSCULAR VOLUME 89.7 fL (81.0-99.0); MEAN PLATELET VOLUME 9.6 fl (7.4-10.4); MONOCYTES % 9.8 % (2.0-8.0); NEUTROPHILS % 68.7 % (40.0-76.0); PLATELET 244 x1000/uL (130-400); RED BLOOD CELL COUNT 3.84 mill/uL (4.2-5.4); RED CELL DISTRIBUTION WIDTH 14.1 % (11.6-14.6)
[2021-08-07 05:02] LABS: CHLORIDE 110 mEq/L (98-107)
[2021-08-07 05:15] VITALS: BP 158/66
[2021-08-07] MEDS ORDERED: CEFTRIAXONE 1 G PREMIX 50 ML IV ONE (05:30)
[2021-08-07] MEDS ORDERED: POTASSIUM CHLORIDE 20MEQ TABLET SR PO ONE (05:30)
== END 2021-08-07 09:28 | disposition short-term general hospital (02) ==
LOC: ER 02:54
DX: R55 Syncope and collapse (principal); N39.0 Urinary tract infection, site not specified; E87.6 Hypokalemia; R42 Dizziness and giddiness; G89.29 Other chronic pain; M54.50 Low back pain, unspecified; E11.9 Type 2 diabetes mellitus without complications; I10 Essential (primary) hypertension; M19.90 Unspecified osteoarthritis, unspecified site; Z86.73 Personal history of transient ischemic attack (TIA), and cerebral infarction without residual deficits; Z79.82 Long term (current) use of aspirin
CPT/HCPCS: 36415; 71045; 80053; 81003; 83880; 84484; 85025; 87086; 93005; 96361; 96365; 96375; 99285; J2270; J2405; J7030

== ENCOUNTER 2021-12-22 02:58 | Emergency (ER) | payer MEDICARE, OTHER ==
[~2021-12-22] VITALS: Ht 165.1 cm; Wt 75.0 kg
[2021-12-22] MEDS ORDERED: KETOROLAC 30MG/ML VIAL IV STA (03:26)
[2021-12-22 03:53] LABS: BASOPHILS % 0.8 % (0.0-2.0); EOSINOPHILS % 3.4 % (0.0-5.0); HEMATOCRIT. 33.7 % (36.0-48.0); HEMOGLOBIN. 11.2 g/dL (12.0-16.0); LYMPHOCYTES % 28.4 % (20.0-50.0); MEAN CORPUSCULAR VOLUME 90.1 fL (81.0-99.0); MEAN PLATELET VOLUME 9.8 fl (7.4-10.4); NEUTROPHILS % 57.4 % (40.0-76.0); PLATELET 194 x1000/uL (130-400); RED BLOOD CELL COUNT 3.74 mill/uL (4.2-5.4); RED CELL DISTRIBUTION WIDTH 14.3 % (11.6-14.6)
[2021-12-22 04:01] LABS: CHLORIDE 114 mEq/L (98-107)
[2021-12-22] MEDS ORDERED: BACL-141 MT (05:19)
[2021-12-22 05:20] VITALS: BP 186/78
[2021-12-22] MEDS ORDERED: CIPR500T5 MT (13:42)
== END 2021-12-22 05:33 | disposition home or self-care (01) ==
LOC: ER 02:58
DX: M54.50 Low back pain, unspecified (principal); R11.0 Nausea; T50.B95A Adverse effect of other viral vaccines, initial encounter; Y92.9 Unspecified place or not applicable; E11.9 Type 2 diabetes mellitus without complications; I10 Essential (primary) hypertension; Z79.82 Long term (current) use of aspirin; Z86.73 Personal history of transient ischemic attack (TIA), and cerebral infarction without residual deficits
CPT/HCPCS: 36415; 71045; 80053; 85025; 96374; 99284; J1885

== ENCOUNTER 2021-12-22 11:00 | Emergency (ER) | payer MEDICARE, OTHER ==
[~2021-12-22] VITALS: Ht 152.4 cm; Wt 84.0 kg
[~2021-12-22 11:00] MED LIST changes: +BACL-141 MT
[2021-12-22] MEDS ORDERED: KETOROLAC 30MG/ML VIAL IM NR (13:00)
[2021-12-22 13:05] VITALS: BP 121/89
[2021-12-22 13:09] LABS: CLARITY URINE TURBID (CLEAR); COLOR URINE DARK YELLOW (YELLOW); KETONES URINE TRACE (NEGATIVE); LEUKOCYTE ESTERASE URINE 3+ (NEGATIVE); NITRITE URINE NEGATIVE (NEGATIVE); OCCULT BLOOD URINE NEGATIVE (NEGATIVE); PH URINE 5.5 (4.5-8.0); PROTEIN URINE 2+ (NEGATIVE); SPECIFIC GRAVITY URINE 1.015 (1.005-1.030)
[2021-12-22] MEDS ORDERED: CIPR500T5 MT (13:42)
== END 2021-12-22 13:59 | disposition home or self-care (01) ==
LOC: ER 11:00
DX: N39.0 Urinary tract infection, site not specified (principal); M54.9 Dorsalgia, unspecified; E11.9 Type 2 diabetes mellitus without complications; I10 Essential (primary) hypertension; H40.9 Unspecified glaucoma; Z79.82 Long term (current) use of aspirin; Z86.73 Personal history of transient ischemic attack (TIA), and cerebral infarction without residual deficits
CPT/HCPCS: 81003; 96372; 99283; J1885

== ENCOUNTER 2022-01-02 12:42 | Emergency (ER) | payer MEDICARE, OTHER ==
[~2022-01-02] VITALS: Ht 152.4 cm; Wt 83.0 kg
[~2022-01-02 12:42] MED LIST changes: +CIPR500T5 MT
[2022-01-02] MEDS ORDERED: ACETAMINOPHEN 325MG TABLET PO ONE (13:30)
[2022-01-02] MEDS ORDERED: LIDOCAINE 5% PATCH TOP SCH (13:30)
[2022-01-02 13:33] LABS: BASOPHILS % 0.5 % (0.0-2.0); CHLORIDE 114 mEq/L (98-107); EOSINOPHILS % 1.8 % (0.0-5.0); HEMATOCRIT. 36.3 % (36.0-48.0); HEMOGLOBIN. 11.8 g/dL (12.0-16.0); LYMPHOCYTES % 17.7 % (20.0-50.0); MEAN CORPUSCULAR HEMOGLOBIN 29.7 pg (28.0-32.0); MEAN CORPUSCULAR VOLUME 91.2 fL (81.0-99.0); MEAN PLATELET VOLUME 9.7 fl (7.4-10.4); MONOCYTES % 6.9 % (2.0-8.0); NEUTROPHILS % 73.1 % (40.0-76.0); PLATELET 217 x1000/uL (130-400); RED BLOOD CELL COUNT 3.98 mill/uL (4.2-5.4); RED CELL DISTRIBUTION WIDTH 14.4 % (11.6-14.6)
[2022-01-02 13:45] LABS: CLARITY URINE TURBID (CLEAR); COLOR URINE YELLOW (YELLOW); KETONES URINE NEGATIVE (NEGATIVE); LEUKOCYTE ESTERASE URINE 1+ (NEGATIVE); NITRITE URINE NEGATIVE (NEGATIVE); OCCULT BLOOD URINE NEGATIVE (NEGATIVE); PROTEIN URINE 2+ (NEGATIVE); SPECIFIC GRAVITY URINE 1.017 (1.005-1.030); UROBILINOGEN URINE 0.2 E.U./dL (0.2-1.0)
[2022-01-02] MEDS ORDERED: LIDO1ADH5 TP (14:30)
[2022-01-02] MEDS ORDERED: CEFP200T13 MT (14:30)
[2022-01-02] MEDS ORDERED: ACET-2708 MT (14:30)
[2022-01-02 15:12] VITALS: BP 158/69
== END 2022-01-02 15:13 | disposition home or self-care (01) ==
LOC: ER 13:35
DX: N39.0 Urinary tract infection, site not specified (principal); M54.50 Low back pain, unspecified; G89.29 Other chronic pain; E11.9 Type 2 diabetes mellitus without complications; I10 Essential (primary) hypertension; Z86.73 Personal history of transient ischemic attack (TIA), and cerebral infarction without residual deficits; Z79.899 Other long term (current) drug therapy
CPT/HCPCS: 36415; 80048; 81003; 85025; 99283

== ENCOUNTER 2022-01-10 11:18 | Emergency (ER) | payer MEDICARE, OTHER ==
[~2022-01-10] VITALS: Ht 152.4 cm; Wt 82.0 kg
[~2022-01-10 11:18] MED LIST changes: +ACET-2708 MT; +CEFP200T13 MT; +LIDO1ADH5 TP
[2022-01-10] MEDS ORDERED: KETOROLAC 15MG/ML VIAL IV ONE (12:00)
[2022-01-10] MEDS ORDERED: SODIUM CHLORIDE 0.9% 1,000 ML IV ONE (12:00)
[2022-01-10] MEDS ORDERED: AMLODIPINE 10MG TABLET PO ONE (12:00)
[2022-01-10 12:22] LABS: BASOPHILS % 0.3 % (0.0-2.0); EOSINOPHILS % 2.6 % (0.0-5.0); HEMATOCRIT. 33.5 % (36.0-48.0); HEMOGLOBIN. 10.9 g/dL (12.0-16.0); LYMPHOCYTES % 12.8 % (20.0-50.0); MEAN CORPUSCULAR HEMOGLOBIN 29.9 pg (28.0-32.0); MEAN CORPUSCULAR VOLUME 91.6 fL (81.0-99.0); MONOCYTES % 7.5 % (2.0-8.0); NEUTROPHILS % 76.8 % (40.0-76.0); PLATELET 216 x1000/uL (130-400); RED BLOOD CELL COUNT 3.65 mill/uL (4.2-5.4); RED CELL DISTRIBUTION WIDTH 14.8 % (11.6-14.6)
[2022-01-10 12:29] LABS: CHLORIDE 115 mEq/L (98-107)
[2022-01-10] MEDS ORDERED: CLONIDINE 0.1MG TABLET PO ONE (14:00)
[2022-01-10] MEDS ORDERED: POTASSIUM CHLORIDE 20MEQ TABLET SR PO ONE (14:00)
[2022-01-10 15:27] VITALS: BP 161/65
== END 2022-01-10 15:29 | disposition home or self-care (01) ==
LOC: ER 11:18
DX: I10 Essential (primary) hypertension (principal); R04.0 Epistaxis; R42 Dizziness and giddiness; G89.29 Other chronic pain; M54.89 Other dorsalgia; E11.9 Type 2 diabetes mellitus without complications; M19.90 Unspecified osteoarthritis, unspecified site; F11.10 Opioid abuse, uncomplicated; Z86.73 Personal history of transient ischemic attack (TIA), and cerebral infarction without residual deficits; Z79.82 Long term (current) use of aspirin
CPT/HCPCS: 36415; 80053; 85025; 93005; 96361; 96374; 99285; J1885; J7030

== ENCOUNTER 2022-03-21 10:23 | Emergency (ER) | payer MEDICARE, OTHER ==
[~2022-03-21] VITALS: Ht 167.6 cm; Wt 91.0 kg
[2022-03-21 10:27] VITALS: BP 179/68
[2022-03-21] MEDS ORDERED: KETOROLAC 60MG/2ML VIAL IM ONE (10:45)
== END 2022-03-21 12:20 | disposition home or self-care (01) ==
LOC: ER 10:23
DX: G89.29 Other chronic pain (principal); M54.50 Low back pain, unspecified; E11.9 Type 2 diabetes mellitus without complications; I10 Essential (primary) hypertension; M19.90 Unspecified osteoarthritis, unspecified site; Z86.73 Personal history of transient ischemic attack (TIA), and cerebral infarction without residual deficits; Z79.82 Long term (current) use of aspirin
CPT/HCPCS: 96372; 99283; J1885

== ENCOUNTER 2022-06-19 05:48 | Emergency (ER) | payer MEDICARE, OTHER ==
[~2022-06-19] VITALS: Ht 152.4 cm; Wt 83.2 kg
[2022-06-19 06:18] VITALS: BP 123/69
[2022-06-19] MEDS ORDERED: BENZ100C86 MT (07:46)
== END 2022-06-19 08:24 | disposition home or self-care (01) ==
LOC: ER 05:48
DX: R05.9 Cough, unspecified (principal); R09.81 Nasal congestion; Z79.899 Other long term (current) drug therapy
CPT/HCPCS: 71046; 99283

== ENCOUNTER 2022-06-30 20:25 | Emergency (ER) | payer MEDICARE, OTHER ==
[~2022-06-30] VITALS: Ht 152.4 cm; Wt 84.3 kg
[~2022-06-30 20:25] MED LIST changes: +BENZ100C86 MT
[2022-06-30 22:37] LABS: CLARITY URINE CLOUDY (CLEAR); COLOR URINE YELLOW (YELLOW); KETONES URINE TRACE (NEGATIVE); LEUKOCYTE ESTERASE URINE 1+ (NEGATIVE); NITRITE URINE NEGATIVE (NEGATIVE); OCCULT BLOOD URINE NEGATIVE (NEGATIVE); PH URINE 5.5 (4.5-8.0); PROTEIN URINE 4+ (NEGATIVE)
[2022-06-30] MEDS ORDERED: HYDROCODONE/ACETAMINOPHEN 5/325MG TABLET PO ONE (23:00)
[2022-06-30] MEDS ORDERED: LIDOCAINE HCL 1% 20ML VIAL (Pyxis) INJ INFIL ONE (23:45)
[2022-06-30] MEDS ORDERED: KETOROLAC 60MG/2ML VIAL IM ONE (23:45)
[2022-06-30] MEDS ORDERED: CEFTRIAXONE SODIUM 1 G/VIAL IM ONE (23:45)
[2022-06-30] MEDS ORDERED: MORPHINE SULFATE 10 MG/ML CPJ IM ONE (23:45)
[2022-06-30] MEDS ORDERED: CEFP200T13 MT (23:58)
[2022-07-01 00:14] VITALS: BP 263/108
== END 2022-07-01 00:13 | disposition home or self-care (01) ==
LOC: ER 20:25
DX: M54.50 Low back pain, unspecified (principal); N39.0 Urinary tract infection, site not specified; I10 Essential (primary) hypertension
CPT/HCPCS: 81003; 87086; 93005; 96372; 99284; J0696; J1885; J2270

== ENCOUNTER 2022-07-07 12:49 | Emergency (ER) | payer MEDICARE, OTHER ==
[~2022-07-07] VITALS: Ht 152.4 cm; Wt 78.0 kg
[2022-07-07] MEDS ORDERED: DIAZEPAM 5 MG TABLET PO ONE (14:15)
[2022-07-07] MEDS ORDERED: KETOROLAC 30MG/ML VIAL IV ONE (15:45)
[2022-07-07] MEDS ORDERED: ACETAMINOPHEN 325MG TABLET PO ONE (15:45)
[2022-07-07] MEDS ORDERED: NAPR-681 MT (16:33)
[2022-07-07] MEDS ORDERED: OXYCODONE HCL 5MG TABLET PO ONE (16:45)
[2022-07-07] MEDS ORDERED: LOSARTAN POTASSIUM 100 MG TABLET PO ONE (16:45)
[2022-07-07] MEDS ORDERED: MORPHINE SULFATE 4 MG/ML CPJ (NOT FOR IM USE) IV ONE (17:15)
[2022-07-07 18:45] VITALS: BP 250/80
== END 2022-07-07 19:37 | disposition home or self-care (01) ==
LOC: ER 12:49
DX: M54.50 Low back pain, unspecified (principal); G89.29 Other chronic pain; I10 Essential (primary) hypertension; M19.90 Unspecified osteoarthritis, unspecified site; Z79.82 Long term (current) use of aspirin
CPT/HCPCS: 93005; 96374; 96375; 99285; J1885; J2270

== ENCOUNTER 2022-07-30 09:00 | Emergency (ER) | payer MEDICARE, OTHER ==
[~2022-07-30] VITALS: Ht 165.1 cm; Wt 77.0 kg
[~2022-07-30 09:00] MED LIST changes: +NAPR-681 MT
[2022-07-30 09:04] VITALS: BP 156/90
[2022-07-30] MEDS ORDERED: KETOROLAC 60MG/2ML VIAL IM ONE (09:45)
== END 2022-07-30 10:49 | disposition home or self-care (01) ==
LOC: ER 09:14
DX: M54.50 Low back pain, unspecified (principal); M19.90 Unspecified osteoarthritis, unspecified site; I10 Essential (primary) hypertension; Z79.82 Long term (current) use of aspirin
CPT/HCPCS: 96372; 99283; J1885

== ENCOUNTER 2022-08-02 10:28 | Emergency (ER) | payer MEDICARE, OTHER ==
[~2022-08-02] VITALS: Ht 165.1 cm; Wt 80.0 kg
[2022-08-02] MEDS ORDERED: ACETAMINOPHEN 325MG TABLET PO ONE (10:45)
[2022-08-02] MEDS ORDERED: DIAZEPAM 2 MG TABLET PO ONE (10:45)
[2022-08-02] MEDS ORDERED: KETOROLAC 60MG/2ML VIAL IM ONE (10:45)
[2022-08-02 11:44] LABS: CLARITY URINE CLOUDY (CLEAR); COLOR URINE YELLOW (YELLOW); KETONES URINE NEGATIVE (NEGATIVE); LEUKOCYTE ESTERASE URINE TRACE (NEGATIVE); NITRITE URINE NEGATIVE (NEGATIVE); OCCULT BLOOD URINE NEGATIVE (NEGATIVE); PROTEIN URINE 2+ (NEGATIVE); SPECIFIC GRAVITY URINE 1.007 (1.005-1.030)
[2022-08-02 13:00] VITALS: BP 150/69
[2022-08-02] MEDS ORDERED: LIDO1ADH23 TP (13:26)
[2022-08-02] MEDS ORDERED: IBUP-2028 MT (13:26)
== END 2022-08-02 13:50 | disposition home or self-care (01) ==
LOC: ER 10:28
DX: G89.29 Other chronic pain (principal); M54.9 Dorsalgia, unspecified; I10 Essential (primary) hypertension; Z20.822 Contact with and (suspected) exposure to COVID-19; Z79.899 Other long term (current) drug therapy; Z98.890 Other specified postprocedural states; Z79.82 Long term (current) use of aspirin
CPT/HCPCS: 81003; 87426; 96372; 99283; C9803; J1885

== ENCOUNTER 2022-08-13 14:05 | Emergency (ER) | payer MEDICARE, OTHER ==
[~2022-08-13] VITALS: Ht 152.4 cm; Wt 84.0 kg
[~2022-08-13 14:05] MED LIST changes: +IBUP-2028 MT; +LIDO1ADH23 TP
[2022-08-13] MEDS ORDERED: OXYCODONE HCL/ACETAMINOPHEN 5/325MG TABLET PO ONE (19:15)
[2022-08-13] MEDS ORDERED: METOPROLOL TARTRATE 50MG TABLET PO ONE (19:15)
[2022-08-13] MEDS ORDERED: HYDRALAZINE 20MG/ML VIAL IV ONE (19:15)
[2022-08-13 19:34] LABS: BASOPHILS % 0.5 % (0.0-2.0); EOSINOPHILS % 2.2 % (0.0-5.0); HEMOGLOBIN. 11.5 g/dL (12.0-16.0); LYMPHOCYTES % 18.3 % (20.0-50.0); MEAN CORPUSCULAR HEMOGLOBIN 30.1 pg (28.0-32.0); MEAN CORPUSCULAR VOLUME 91.3 fL (81.0-99.0); MEAN PLATELET VOLUME 10.2 fl (7.4-10.4); MONOCYTES % 11.3 % (2.0-8.0); NEUTROPHILS % 67.7 % (40.0-76.0); PLATELET 188 x1000/uL (130-400); RED BLOOD CELL COUNT 3.84 mill/uL (4.2-5.4); RED CELL DISTRIBUTION WIDTH 14.3 % (11.6-14.6)
[2022-08-13 19:50] LABS: CHLORIDE 113 mEq/L (98-107)
[2022-08-13] MEDS ORDERED: AMOXICILLIN/POTASSIUM CLAVULANATE 875/125MG TAB PO ONE (20:00)
[2022-08-13] MEDS ORDERED: KCL 20MEQ/100ML PREMIX 100 ML IV ONE (20:30)
[2022-08-13] MEDS ORDERED: MAGNESIUM 2 G PREMIX 50 ML IV ONE (20:30)
[2022-08-13] MEDS ORDERED: POTASSIUM CHLORIDE 20MEQ TABLET SR PO ONE (20:30)
[2022-08-13] MEDS ORDERED: AMOX1TAB16 MT (23:10)
[2022-08-13 23:30] VITALS: BP 189/81
== END 2022-08-13 23:45 | disposition home or self-care (01) ==
LOC: ER 14:22
DX: I10 Essential (primary) hypertension (principal); K08.89 Other specified disorders of teeth and supporting structures; E11.9 Type 2 diabetes mellitus without complications; M19.90 Unspecified osteoarthritis, unspecified site; Z20.822 Contact with and (suspected) exposure to COVID-19; Z79.82 Long term (current) use of aspirin
CPT/HCPCS: 36415; 71045; 80053; 83880; 84484; 85025; 87040; 96365; 96375; 99285; J0360; J3475; J3480

== ENCOUNTER 2022-10-04 11:14 | Emergency (ER) | payer MEDICARE, OTHER ==
[~2022-10-04] VITALS: Ht 152.4 cm; Wt 91.0 kg
[~2022-10-04 11:14] MED LIST changes: +AMOX1TAB16 MT
[2022-10-04 11:42] VITALS: BP 210/86
[2022-10-04] MEDS ORDERED: KETOROLAC 60MG/2ML VIAL IM STA (14:07)
[2022-10-04 14:43] LABS: BASOPHILS % 0.6 % (0.0-2.0); EOSINOPHILS % 0.9 % (0.0-5.0); HEMATOCRIT. 38.5 % (36.0-48.0); HEMOGLOBIN. 13.1 g/dL (12.0-16.0); LYMPHOCYTES % 15.6 % (20.0-50.0); MEAN CORPUSCULAR VOLUME 90.7 fL (81.0-99.0); MEAN PLATELET VOLUME 10.4 fl (7.4-10.4); MONOCYTES % 8.6 % (2.0-8.0); NEUTROPHILS % 74.3 % (40.0-76.0); PLATELET 178 x1000/uL (130-400); RED BLOOD CELL COUNT 4.24 mill/uL (4.2-5.4); RED CELL DISTRIBUTION WIDTH 14.7 % (11.6-14.6)
[2022-10-04 14:55] LABS: CHLORIDE 117 mEq/L (98-107)
[2022-10-04] MEDS ORDERED: CYCL5TAB MT (15:49)
[2022-10-04] MEDS ORDERED: OXYC10TA48 MT (15:49)
== END 2022-10-04 16:40 | disposition home or self-care (01) ==
LOC: ER 11:51
DX: M19.90 Unspecified osteoarthritis, unspecified site (principal); R05.9 Cough, unspecified; M54.9 Dorsalgia, unspecified; I10 Essential (primary) hypertension; R51.9 Headache, unspecified; Z20.822 Contact with and (suspected) exposure to COVID-19; Z98.890 Other specified postprocedural states; Z79.899 Other long term (current) drug therapy
CPT/HCPCS: 36415; 71045; 80053; 84484; 85025; 87426; 87804; 93005; 96372; 99285; C9803; J1885

== ENCOUNTER 2022-10-18 10:16 | Emergency (ER) | payer MEDICARE, OTHER ==
[~2022-10-18] VITALS: Ht 152.4 cm; Wt 85.0 kg
[~2022-10-18 10:16] MED LIST changes: +CYCL5TAB MT; +OXYC10TA48 MT
[2022-10-18] MEDS ORDERED: KETOROLAC 15MG/ML VIAL IM ONE (19:45)
[2022-10-18] MEDS ORDERED: DIAZEPAM 5 MG/ML 2ML CPJ IM ONE (19:45)
[2022-10-18] MEDS ORDERED: LOSARTAN POTASSIUM 25 MG TABLET PO ONE (22:45)
[2022-10-18] MEDS ORDERED: KETOROLAC 15MG/ML VIAL IM NR (22:45)
[2022-10-18] MEDS ORDERED: AMLODIPINE 10MG TABLET PO ONE (22:45)
[2022-10-18] MEDS ORDERED: DIAZEPAM 5 MG/ML 2ML CPJ IM NR (22:45)
[2022-10-18] MEDS ORDERED: HYDROCHLOROTHIAZIDE 25MG TABLET PO ONE (22:45)
[2022-10-18 23:49] VITALS: BP 258/96
== END 2022-10-18 23:50 | disposition home or self-care (01) ==
LOC: ER 10:16
DX: G89.29 Other chronic pain (principal); M54.50 Low back pain, unspecified; E11.9 Type 2 diabetes mellitus without complications; I10 Essential (primary) hypertension; Z98.890 Other specified postprocedural states; Z79.899 Other long term (current) drug therapy; Z79.82 Long term (current) use of aspirin
CPT/HCPCS: 96372; 99284; J1885

== ENCOUNTER 2022-10-28 16:21 | Emergency (ER) | payer MEDICARE, OTHER ==
[~2022-10-28] VITALS: Ht 157.5 cm; Wt 85.0 kg
[2022-10-28 16:38] VITALS: BP 191/87
[2022-10-28] MEDS ORDERED: BACL-141 MT (18:14)
[2022-10-28] MEDS ORDERED: LIDO700A15 TP (18:14)
[2022-10-28] MEDS ORDERED: ACETAMINOPHEN 325MG TABLET PO ONE (18:15)
[2022-10-28] MEDS ORDERED: LIDOCAINE 5% PATCH TOP SCH (18:15)
== END 2022-10-28 18:43 | disposition home or self-care (01) ==
LOC: ER 16:21
DX: G89.29 Other chronic pain (principal); M54.9 Dorsalgia, unspecified; I10 Essential (primary) hypertension; E11.9 Type 2 diabetes mellitus without complications; Z13.9 Encounter for screening, unspecified; Z79.899 Other long term (current) drug therapy; Z98.890 Other specified postprocedural states; Z79.82 Long term (current) use of aspirin
CPT/HCPCS: 99283

== ENCOUNTER 2022-11-08 15:28 | Emergency (ER) | payer MEDICARE, OTHER ==
[~2022-11-08] VITALS: Ht 152.4 cm; Wt 84.0 kg
[~2022-11-08 15:28] MED LIST changes: +LIDO700A15 TP
[2022-11-08] MEDS ORDERED: DIAZEPAM 5 MG/ML 2ML CPJ IM ONE (17:30)
[2022-11-08] MEDS ORDERED: KETOROLAC 60MG/2ML VIAL IM ONE (17:30)
[2022-11-08] MEDS ORDERED: METH-653 MT (17:45)
[2022-11-08 17:47] VITALS: BP 132/81
[2022-11-09] MEDS ORDERED: LIDO700A15 TP (13:38)
[2022-11-09] MEDS ORDERED: ACET-2708 MT (13:38)
[2022-11-09] MEDS ORDERED: POTA-204 MT (13:40)
== END 2022-11-08 18:01 | disposition home or self-care (01) ==
LOC: ER 15:28
DX: M54.9 Dorsalgia, unspecified (principal); E11.9 Type 2 diabetes mellitus without complications; I11.0 Hypertensive heart disease with heart failure; I50.9 Heart failure, unspecified; Z68.36 Body mass index [BMI] 36.0-36.9, adult; Z79.899 Other long term (current) drug therapy; Z79.82 Long term (current) use of aspirin; Z86.73 Personal history of transient ischemic attack (TIA), and cerebral infarction without residual deficits
CPT/HCPCS: 96372; 99284; J1885; J3360; Z7610

== ENCOUNTER 2022-11-09 10:33 | Emergency (ER) | payer MEDICARE, OTHER ==
[~2022-11-09] VITALS: Ht 157.5 cm; Wt 82.0 kg
[~2022-11-09 10:33] MED LIST changes: +METH-653 MT
[2022-11-09] MEDS ORDERED: ACETAMINOPHEN 325MG TABLET PO ONE (12:00)
[2022-11-09] MEDS ORDERED: MORPHINE SULFATE 10 MG/ML CPJ IM ONE (12:00)
[2022-11-09] MEDS ORDERED: LIDOCAINE 5% PATCH TOP SCH (12:00)
[2022-11-09 13:01] LABS: BASOPHILS % 0.4 % (0.0-2.0); EOSINOPHILS % 1.4 % (0.0-5.0); HEMATOCRIT. 33.9 % (36.0-48.0); HEMOGLOBIN. 11.2 g/dL (12.0-16.0); LYMPHOCYTES % 15.5 % (20.0-50.0); MEAN CORPUSCULAR HEMOGLOBIN 29.5 pg (28.0-32.0); MEAN CORPUSCULAR VOLUME 89.4 fL (81.0-99.0); MEAN PLATELET VOLUME 9.4 fl (7.4-10.4); MONOCYTES % 12.7 % (2.0-8.0); PLATELET 212 x1000/uL (130-400); RED BLOOD CELL COUNT 3.79 mill/uL (4.2-5.4); RED CELL DISTRIBUTION WIDTH 14.4 % (11.6-14.6)
[2022-11-09 13:12] LABS: CHLORIDE 116 mEq/L (98-107)
[2022-11-09] MEDS ORDERED: ACET-2708 MT (13:38)
[2022-11-09] MEDS ORDERED: LIDO700A15 TP (13:38)
[2022-11-09] MEDS ORDERED: POTA-204 MT (13:40)
[2022-11-09] MEDS ORDERED: POTASSIUM CHLORIDE 20MEQ TABLET SR PO ONE (13:45)
[2022-11-09 14:16] VITALS: BP 204/83
== END 2022-11-09 14:40 | disposition home or self-care (01) ==
LOC: ER 10:33
DX: M54.50 Low back pain, unspecified (principal); G89.29 Other chronic pain; E87.6 Hypokalemia; D64.9 Anemia, unspecified; E11.9 Type 2 diabetes mellitus without complications; M19.90 Unspecified osteoarthritis, unspecified site; I11.0 Hypertensive heart disease with heart failure; I50.9 Heart failure, unspecified; H40.9 Unspecified glaucoma; Z86.73 Personal history of transient ischemic attack (TIA), and cerebral infarction without residual deficits; Z79.82 Long term (current) use of aspirin
CPT/HCPCS: 36415; 80048; 85025; 96372; 99283; J2270; Z7610

== ENCOUNTER 2022-12-08 00:17 | Emergency (ER) | payer MEDICARE, OTHER ==
[~2022-12-08] VITALS: Ht 152.4 cm; Wt 84.0 kg
[~2022-12-08 00:17] MED LIST changes: +POTA-204 MT
[2022-12-08] MEDS ORDERED: KETOROLAC 60MG/2ML VIAL IM ONE (07:45)
[2022-12-08] MEDS ORDERED: OXYC10TA48 PO (07:47)
[2022-12-08 08:00] VITALS: BP 186/90
== END 2022-12-08 08:05 | disposition home or self-care (01) ==
LOC: ER 00:17
DX: G89.29 Other chronic pain (principal); M54.50 Low back pain, unspecified; M19.90 Unspecified osteoarthritis, unspecified site; E11.9 Type 2 diabetes mellitus without complications; I11.0 Hypertensive heart disease with heart failure; I50.9 Heart failure, unspecified; H40.9 Unspecified glaucoma; Z76.0 Encounter for issue of repeat prescription; Z86.73 Personal history of transient ischemic attack (TIA), and cerebral infarction without residual deficits; Z79.82 Long term (current) use of aspirin
CPT/HCPCS: 96372; 99283; J1885

== ENCOUNTER 2022-12-18 17:34 | Emergency (ER) | payer MEDICARE, OTHER ==
[~2022-12-18] VITALS: Ht 152.4 cm; Wt 85.0 kg
[~2022-12-18 17:34] MED LIST changes: +OXYC10TA48 PO
[2022-12-18] MEDS ORDERED: KETOROLAC 60MG/2ML VIAL IM ONE (23:45)
[2022-12-19 00:40] VITALS: BP 160/58
== END 2022-12-19 00:45 | disposition home or self-care (01) ==
LOC: ER 17:34
DX: M54.50 Low back pain, unspecified (principal); I11.0 Hypertensive heart disease with heart failure; I50.9 Heart failure, unspecified; E78.00 Pure hypercholesterolemia, unspecified; E11.9 Type 2 diabetes mellitus without complications; M19.90 Unspecified osteoarthritis, unspecified site; H40.9 Unspecified glaucoma; Z86.73 Personal history of transient ischemic attack (TIA), and cerebral infarction without residual deficits; Z79.82 Long term (current) use of aspirin
CPT/HCPCS: 96372; 99283; J1885

== ENCOUNTER 2023-01-07 12:16 | Emergency (ER) | payer MEDICARE, OTHER ==
[~2023-01-07] VITALS: Ht 167.6 cm; Wt 74.0 kg
[2023-01-07] MEDS ORDERED: MAGNESIUM/ALUMINUM HYDROXIDE/SIMETHICONE 30ML UDC PO ONE (15:00)
[2023-01-07] MEDS ORDERED: OXYCODONE HCL/ACETAMINOPHEN 5/325MG TABLET PO ONE (15:00)
[2023-01-07 16:38] LABS: BASOPHILS % 0.9 % (0.0-2.0); EOSINOPHILS % 2.3 % (0.0-5.0); HEMATOCRIT. 35.3 % (36.0-48.0); HEMOGLOBIN. 11.7 g/dL (12.0-16.0); LYMPHOCYTES % 25.7 % (20.0-50.0); MEAN CORPUSCULAR HEMOGLOBIN 30.5 pg (28.0-32.0); MEAN CORPUSCULAR VOLUME 91.6 fL (81.0-99.0); MEAN PLATELET VOLUME 10.3 fl (7.4-10.4); MONOCYTES % 10.8 % (2.0-8.0); NEUTROPHILS % 60.3 % (40.0-76.0); PLATELET 194 x1000/uL (130-400); RED BLOOD CELL COUNT 3.86 mill/uL (4.2-5.4); RED CELL DISTRIBUTION WIDTH 14.8 % (11.6-14.6)
[2023-01-07 16:47] LABS: CHLORIDE 118 mEq/L (98-107)
[2023-01-07] MEDS ORDERED: POTASSIUM CHLORIDE 20MEQ TABLET SR PO NR (17:00)
[2023-01-07] MEDS ORDERED: HYDRALAZINE 20MG/ML VIAL IV ONE (17:30)
[2023-01-07 18:00] VITALS: BP 168/69
[2023-01-07 18:23] LABS: CLARITY URINE CLEAR (CLEAR); COLOR URINE YELLOW (YELLOW); KETONES URINE NEGATIVE (NEGATIVE); LEUKOCYTE ESTERASE URINE TRACE (NEGATIVE); NITRITE URINE NEGATIVE (NEGATIVE); OCCULT BLOOD URINE NEGATIVE (NEGATIVE); PROTEIN URINE 3+ (NEGATIVE)
== END 2023-01-07 19:30 | disposition home or self-care (01) ==
LOC: ER 12:16
DX: R53.1 Weakness (principal); I10 Essential (primary) hypertension; D64.9 Anemia, unspecified; I11.0 Hypertensive heart disease with heart failure; I50.9 Heart failure, unspecified; E11.9 Type 2 diabetes mellitus without complications; E78.00 Pure hypercholesterolemia, unspecified; H40.9 Unspecified glaucoma; Z86.73 Personal history of transient ischemic attack (TIA), and cerebral infarction without residual deficits; Z79.899 Other long term (current) drug therapy
CPT/HCPCS: 36415; 71045; 80053; 81003; 83605; 83690; 84484; 85025; 96374; 99284; J0360

== ENCOUNTER 2023-01-13 18:37 | Emergency (ER) | payer MEDICARE, OTHER ==
[~2023-01-13] VITALS: Ht 160 cm; Wt 68.0 kg
[2023-01-13] MEDS ORDERED: MORPHINE SULFATE 4 MG/ML CPJ (NOT FOR IM USE) IV ONE (19:45)
[2023-01-13] MEDS ORDERED: KETOROLAC 15MG/ML VIAL IV ONE (19:45)
[2023-01-14] MEDS ORDERED: MORPHINE SULFATE 4 MG/ML CPJ (NOT FOR IM USE) IV ONE (00:30)
[2023-01-14 00:45] VITALS: BP 179/82
== END 2023-01-14 01:03 | disposition home or self-care (01) ==
LOC: ER 18:37
DX: M54.50 Low back pain, unspecified (principal); G89.29 Other chronic pain; I11.0 Hypertensive heart disease with heart failure; I50.9 Heart failure, unspecified; E11.9 Type 2 diabetes mellitus without complications; E78.00 Pure hypercholesterolemia, unspecified; M19.90 Unspecified osteoarthritis, unspecified site; Z86.73 Personal history of transient ischemic attack (TIA), and cerebral infarction without residual deficits; Z79.82 Long term (current) use of aspirin
CPT/HCPCS: 74176; 96374; 96375; 96376; 99285; J1885; J2270; Z7610

== ENCOUNTER 2023-02-22 15:13 | Emergency (ER) | payer MEDICARE, OTHER ==
[~2023-02-22] VITALS: Ht 152.4 cm; Wt 85.0 kg
[2023-02-22] MEDS ORDERED: KETOROLAC 60MG/2ML VIAL IM ONE (17:30)
[2023-02-22] MEDS ORDERED: CYCL10TA21 MT (18:41)
[2023-02-22] MEDS ORDERED: AMLODIPINE 5MG TABLET PO ONE (21:00)
[2023-02-22] MEDS ORDERED: HYDRALAZINE 20MG/ML VIAL IV ONE (23:15)
[2023-02-22 23:23] VITALS: BP 231/88
== END 2023-02-22 23:47 | disposition left against medical advice (07) ==
LOC: ER 15:21 → CANBEDREQ 02-23 05:38
DX: G89.29 Other chronic pain (principal); M54.50 Low back pain, unspecified; I11.0 Hypertensive heart disease with heart failure; I50.9 Heart failure, unspecified; E11.9 Type 2 diabetes mellitus without complications; E78.00 Pure hypercholesterolemia, unspecified; Z79.899 Other long term (current) drug therapy; Z79.82 Long term (current) use of aspirin; Z86.73 Personal history of transient ischemic attack (TIA), and cerebral infarction without residual deficits
CPT/HCPCS: 96372; 99283; J1885

== ENCOUNTER 2023-03-19 01:53 | Emergency (ER) | payer MEDICARE, OTHER ==
[~2023-03-19] VITALS: Ht 167.6 cm; Wt 101.0 kg
[~2023-03-19 01:53] MED LIST changes: +ACET250T3 PO; +CYCL10TA21 MT; +DORZ10DR17 EACHEYE; -DORZ10DR17 OP; -POTA-204 MT
[2023-03-19] MEDS ORDERED: ASPIRIN 81MG TABLET PO ONE (02:30)
[2023-03-19] MEDS ORDERED: SODIUM CHLORIDE 0.9% 1,000 ML IV ONE (02:30)
[2023-03-19 04:18] LABS: BASOPHILS % 0.5 % (0.0-2.0); EOSINOPHILS % 3.7 % (0.0-5.0); HEMATOCRIT. 33.6 % (36.0-48.0); LYMPHOCYTES % 24.7 % (20.0-50.0); MEAN CORPUSCULAR HEMOGLOBIN 30.2 pg (28.0-32.0); MEAN CORPUSCULAR VOLUME 92.1 fL (81.0-99.0); MONOCYTES % 12.4 % (2.0-8.0); NEUTROPHILS % 58.7 % (40.0-76.0); PLATELET 222 x1000/uL (130-400); RED BLOOD CELL COUNT 3.65 mill/uL (4.2-5.4); RED CELL DISTRIBUTION WIDTH 14.7 % (11.6-14.6)
[2023-03-19 04:32] LABS: CHLORIDE 107 mEq/L (98-107)
[2023-03-19 08:00] VITALS: BP 169/85
== END 2023-03-19 14:50 | disposition short-term general hospital (02) ==
LOC: ER 02:20 → CANBEDREQ 19:41
DX: R55 Syncope and collapse (principal); I11.0 Hypertensive heart disease with heart failure; I50.9 Heart failure, unspecified; E11.9 Type 2 diabetes mellitus without complications; E78.00 Pure hypercholesterolemia, unspecified; Z86.73 Personal history of transient ischemic attack (TIA), and cerebral infarction without residual deficits; H40.9 Unspecified glaucoma; Z20.822 Contact with and (suspected) exposure to COVID-19
CPT/HCPCS: 36415; 71045; 80053; 83880; 84484; 85025; 87426; 93005; 96360; 96361; 99285; C9803; J7030; Z7610

== ENCOUNTER 2023-05-18 18:13 | Emergency (ER) | payer MEDICARE, MEDICAID ==
[~2023-05-18] VITALS: Ht 152.4 cm; Wt 71.0 kg
[~2023-05-18 18:13] MED LIST changes: -ACET-2708 MT; -AMLO10TA80 MT; +AMLO5TAB88 PO; -AMOX1TAB16 MT; +ATOR40TA70 PO; -BACL-141 MT; -BENZ100C86 MT; -CEFP200T13 MT; +CHOL-36 PO; -CHOL50004 PO; -CIPR500T5 MT; -CYCL10TA21 MT; -CYCL5TAB MT; -DORZ10DR17 EACHEYE; +DORZ10DR8 EACHEYE; +HYDR100T31 PO; +HYDR12.54 PO; -HYDR25TA MT; -IBUP-2028 MT; -LIDO1ADH23 TP; -LIDO1ADH5 TP; -LIDO700A15 TP; -METH-653 MT; -NAPR-681 MT; -OXYC10TA48 MT; -OXYC10TA48 PO
[2023-05-18 18:24] VITALS: BP 119/60; O2SAT 99
[2023-05-18] MEDS ORDERED: SENN-178 MT (21:06)
[2023-05-18 21:28] VITALS: PULSE 78; RESP 18; TEMP 98.6
== END 2023-05-18 21:26 | disposition home or self-care (01) ==
LOC: ER 18:13
DX: K59.00 Constipation, unspecified (principal); E11.9 Type 2 diabetes mellitus without complications; I10 Essential (primary) hypertension; Z79.899 Other long term (current) drug therapy
CPT/HCPCS: 99282

== ENCOUNTER 2023-06-19 13:32 | Emergency (ER) | payer MEDICARE, OTHER ==
[~2023-06-19] VITALS: Ht 152.4 cm; Wt 72.0 kg
[~2023-06-19 13:32] MED LIST changes: +SENN-178 MT
[2023-06-19 13:53] VITALS: BP 165/65; PULSE 81; RESP 19; TEMP 98; O2SAT 99
[2023-06-19 14:47] LABS: CHLORIDE 112 mEq/L (98-107); INDEX HEMOLYSI 1 (1-3); INDEX ICTERIC 1 (1-4); INDEX LIPEMIC 1 (1-3); POTASSIUM 3.8 mEq/L (3.5-5.1); SODIUM 141 mEq/L (136-145)
[2023-06-19 14:50] LABS: BASOPHILS % 0.3 % (0.0-2.0); HEMATOCRIT. 33.2 % (36.0-48.0); HEMOGLOBIN. 10.8 g/dL (12.0-16.0); LYMPHOCYTES % 11.9 % (20.0-50.0); MEAN CORPUSCULAR HEMOGLOBIN 31.1 pg (28.0-32.0); MEAN CORPUSCULAR HGB CONC 32.5 g/dL (31.0-37.0); MEAN CORPUSCULAR VOLUME 95.5 fL (81.0-99.0); MEAN PLATELET VOLUME 9.7 fl (7.4-10.4); NEUTROPHILS % 77.8 % (40.0-76.0); PLATELET 197 x1000/uL (130-400); RED BLOOD CELL COUNT 3.48 mill/uL (4.2-5.4); RED CELL DISTRIBUTION WIDTH 15.3 % (11.6-14.6); WHITE BLOOD COUNT 8.8 x1000/uL (4.5-11.0)
[2023-06-19 14:55] LABS: ALANINE AMINOTRANSFERASE 12 IU/L (13-61); ALBUMIN 3.4 g/dL (3.4-5.0); ASPARTATE AMINOTRANSFERASE 14 IU/L (15-37); BILIRUBIN TOTAL 0.3 mg/dL (0.1-1.0); CARBON DIOXIDE 22 mEq/L (21-32); GLUCOSE 136 mg/dL (70-105); PROTEIN TOTAL 6.8 g/dL (6.0-8.3); UREA NITROGEN BLOOD 17 mg/dL (7-21)
== END 2023-06-19 16:47 | disposition home or self-care (01) ==
LOC: ER 13:32
DX: B34.9 Viral infection, unspecified (principal); I10 Essential (primary) hypertension; E11.9 Type 2 diabetes mellitus without complications; H40.9 Unspecified glaucoma; F19.90 Other psychoactive substance use, unspecified, uncomplicated
CPT/HCPCS: 36415; 71046; 80053; 85025; 99284

== ENCOUNTER 2023-06-23 06:55 | Emergency (ER) | payer MEDICARE, OTHER ==
[~2023-06-23] VITALS: Ht 167.6 cm; Wt 82.0 kg
[~2023-06-23 06:55] MED LIST changes: -SENN-178 MT; +SENN-371 MT
[2023-06-23 06:58] VITALS: TEMP 98.6; O2SAT 97
[2023-06-23 07:45] VITALS: BP 180/66; PULSE 77; RESP 18
[2023-06-23] MEDS ORDERED: HYDROCODONE/ACETAMINOPHEN 10/325MG TABLET PO ONE (07:45)
[2023-06-23] MEDS ORDERED: KETOROLAC 15MG/ML VIAL IM ONE (07:45)
== END 2023-06-23 08:18 | disposition home or self-care (01) ==
LOC: ER 06:55
DX: G89.29 Other chronic pain (principal); M54.9 Dorsalgia, unspecified; I10 Essential (primary) hypertension; E11.9 Type 2 diabetes mellitus without complications; Z79.899 Other long term (current) drug therapy; Z98.890 Other specified postprocedural states
CPT/HCPCS: 99283; 96372; J1885

== ENCOUNTER 2023-08-12 13:19 | Emergency (ER) | payer MEDICARE, OTHER ==
[~2023-08-12] VITALS: Ht 162.6 cm; Wt 66.0 kg
[2023-08-12 13:30] VITALS: O2SAT 99
[2023-08-12] MEDS ORDERED: CEFTRIAXONE 1GM PREMIX 50 ML IV ONE (14:00)
[2023-08-12] MEDS ORDERED: SODIUM CHLORIDE 0.9% 1000ML BAG (SEPSIS BOLUS) IV ONE (14:00)
[2023-08-12 14:29] LABS: BASOPHILS % 0.9 % (0.0-2.0); EOSINOPHILS % 1.8 % (0.0-5.0); HEMATOCRIT. 40.3 % (36.0-48.0); HEMOGLOBIN. 12.7 g/dL (12.0-16.0); LYMPHOCYTES % 26.9 % (20.0-50.0); MEAN CORPUSCULAR HEMOGLOBIN 29.7 pg (28.0-32.0); MEAN CORPUSCULAR HGB CONC 31.5 g/dL (31.0-37.0); MEAN CORPUSCULAR VOLUME 94.4 fL (81.0-99.0); MEAN PLATELET VOLUME 9.8 fl (7.4-10.4); MONOCYTES % 8.5 % (2.0-8.0); NEUTROPHILS % 61.9 % (40.0-76.0); PLATELET 219 x1000/uL (130-400); RED BLOOD CELL COUNT 4.26 mill/uL (4.2-5.4); RED CELL DISTRIBUTION WIDTH 16.2 % (11.6-14.6); WHITE BLOOD COUNT 5.2 x1000/uL (4.5-11.0)
[2023-08-12 14:40] LABS: INR 0.9; PROTHROMBIN TIME 10.1 sec (9.6-11.0)
[2023-08-12 14:43] LABS: CHLORIDE 114 mEq/L (98-107); INDEX HEMOLYSI 2 (1-3); INDEX ICTERIC 1 (1-4); INDEX LIPEMIC 1 (1-3); POTASSIUM 3.5 mEq/L (3.5-5.1); SODIUM 141 mEq/L (136-145)
[2023-08-12 14:45] LABS: ALBUMIN 3.9 g/dL (3.4-5.0); CARBON DIOXIDE 19 mEq/L (21-32); UREA NITROGEN BLOOD 23 mg/dL (7-21)
[2023-08-12 14:49] LABS: CLARITY URINE CLEAR (CLEAR); COLOR URINE YELLOW (YELLOW); GLUCOSE URINE NEGATIVE (NEGATIVE); KETONES URINE NEGATIVE (NEGATIVE); LEUKOCYTE ESTERASE URINE NEGATIVE (NEGATIVE); NITRITE URINE NEGATIVE (NEGATIVE); OCCULT BLOOD URINE NEGATIVE (NEGATIVE); PROTEIN URINE 1+ (NEGATIVE); SPECIFIC GRAVITY URINE 1.007 (1.005-1.030); UROBILINOGEN URINE 0.2 E.U./dL (0.2-1.0)
[2023-08-12 14:51] LABS: ALANINE AMINOTRANSFERASE 17 IU/L (13-61); ASPARTATE AMINOTRANSFERASE 20 IU/L (15-37); BILIRUBIN TOTAL 0.3 mg/dL (0.1-1.0); GLUCOSE 118 mg/dL (70-105); PROTEIN TOTAL 7.7 g/dL (6.0-8.3)
[2023-08-12 15:12] LABS: BACTERIA URINE TRACE; SQUAMOUS EPITHELIAL CELL URINE 1+ /lpf (RARE/1+); WBC URINE 0-2 /hpf (0-2)
[2023-08-12 15:13] LABS: RBC URINE NONE SEEN /hpf (0-2)
[2023-08-12] MEDS ORDERED: ACETAMINOPHEN 325MG TABLET PO ONE (16:15)
[2023-08-12] MEDS ORDERED: IBUPROFEN 600MG TABLET PO ONE (17:00)
[2023-08-12 17:50] LABS: CHLORIDE 117 mEq/L (98-107); INDEX HEMOLYSI 2 (1-3); INDEX ICTERIC 1 (1-4); INDEX LIPEMIC 1 (1-3); POTASSIUM 3.5 mEq/L (3.5-5.1); SODIUM 144 mEq/L (136-145)
[2023-08-12 17:53] LABS: CALCIUM 8.4 mg/dL (8.5-10.1); CARBON DIOXIDE 22 mEq/L (21-32); GLUCOSE 106 mg/dL (70-105); UREA NITROGEN BLOOD 20 mg/dL (7-21)
[2023-08-12 17:56] LABS: CREATININE 0.9 mg/dL (0.6-1.3)
[2023-08-12 23:40] VITALS: BP 154/70; PULSE 78; RESP 12; TEMP 98.9
== END 2023-08-12 23:58 | disposition left against medical advice (07) ==
LOC: ER 13:30
DX: R53.1 Weakness (principal); R50.9 Fever, unspecified; R53.81 Other malaise; E11.9 Type 2 diabetes mellitus without complications; I10 Essential (primary) hypertension; H40.9 Unspecified glaucoma; Z79.899 Other long term (current) drug therapy
CPT/HCPCS: 80053; 80048; 81003; 83605; 85025; 85610; 87040; 87086; 36415; 84145; 71045; 74176; 93005; 96365; 96366; 99285; J0696; J7030; Z7610 ×4

== ENCOUNTER 2023-08-15 19:30 | Emergency (ER) | payer MEDICARE, OTHER ==
[~2023-08-15] VITALS: Ht 162.6 cm; Wt 101.0 kg
[2023-08-15 19:32] VITALS: O2SAT 99
[2023-08-15] MEDS ORDERED: MAGNESIUM/ALUMINUM HYDROXIDE/SIMETHICONE 30ML UDC PO STA (20:21)
[2023-08-15] MEDS ORDERED: HYDROCODONE/ACETAMINOPHEN 5/325MG TABLET PO STA (20:21)
[2023-08-15] MEDS ORDERED: KETOROLAC 60MG/2ML VIAL IM STA (20:21)
[2023-08-15 20:50] LABS: BASOPHILS % 0.7 % (0.0-2.0); EOSINOPHILS % 1.4 % (0.0-5.0); HEMATOCRIT. 35.7 % (36.0-48.0); HEMOGLOBIN. 11.5 g/dL (12.0-16.0); LYMPHOCYTES % 19.1 % (20.0-50.0); MEAN CORPUSCULAR HEMOGLOBIN 29.8 pg (28.0-32.0); MEAN CORPUSCULAR HGB CONC 32.2 g/dL (31.0-37.0); MEAN CORPUSCULAR VOLUME 92.3 fL (81.0-99.0); MEAN PLATELET VOLUME 9.6 fl (7.4-10.4); MONOCYTES % 9.7 % (2.0-8.0); NEUTROPHILS % 69.1 % (40.0-76.0); PLATELET 191 x1000/uL (130-400); RED BLOOD CELL COUNT 3.87 mill/uL (4.2-5.4); RED CELL DISTRIBUTION WIDTH 15.4 % (11.6-14.6); WHITE BLOOD COUNT 4.7 x1000/uL (4.5-11.0)
[2023-08-15 21:09] LABS: ALANINE AMINOTRANSFERASE 7 IU/L (10-49); ASPARTATE AMINOTRANSFERASE 19 IU/L (<34); BILIRUBIN TOTAL 0.6 mg/dL (0.1-1.0); CALCIUM 9.4 mg/dL (8.7-10.4); CARBON DIOXIDE 21 mEq/L (21-32); CHLORIDE 111 mEq/L (98-107); CREATININE 0.8 mg/dL (0.6-1.0); GLUCOSE 77 mg/dL (70-105); POTASSIUM 3.1 mEq/L (3.5-5.1); PROTEIN TOTAL 6.6 g/dL (6.0-8.3); SODIUM 142 mEq/L (136-145); UREA NITROGEN BLOOD 14 mg/dL (9-23)
[2023-08-15] MEDS ORDERED: POTASSIUM CHLORIDE 20MEQ/PACKET PO NR (23:45)
[2023-08-16] MEDS ORDERED: MAGNESIUM/ALUMINUM HYDROXIDE/SIMETHICONE 30ML UDC PO NR (00:15)
[2023-08-16] MEDS ORDERED: KETOROLAC 60MG/2ML VIAL IM NR (00:15)
[2023-08-16] MEDS ORDERED: HYDROCODONE/ACETAMINOPHEN 5/325MG TABLET PO NR (00:15)
[2023-08-16 00:30] VITALS: BP 143/88; PULSE 72; RESP 17; TEMP 98.6
[2023-08-16] MEDS ORDERED: CYCLOBENZAPRINE 10MG TABLET PO NR (00:45)
[2023-08-16] MEDS ORDERED: CYCLOBENZAPRINE 10MG TABLET PO ONE (00:45)
[2023-08-16] MEDS ORDERED: CYCL5TAB PO (01:50)
== END 2023-08-16 04:02 | disposition home or self-care (01) ==
LOC: ER 19:30
DX: G89.29 Other chronic pain (principal); M54.9 Dorsalgia, unspecified; M19.90 Unspecified osteoarthritis, unspecified site; E11.9 Type 2 diabetes mellitus without complications; I10 Essential (primary) hypertension; H40.9 Unspecified glaucoma
CPT/HCPCS: 80053; 85025; 36415; 71045; 74018; 74176; 99285; 96372; J1885; Z7610

== ENCOUNTER 2023-08-18 15:09 | Emergency (ER) | payer MEDICARE, OTHER ==
[~2023-08-18] VITALS: Ht 165.1 cm; Wt 73.0 kg
[~2023-08-18 15:09] MED LIST changes: +CYCL5TAB PO
[2023-08-18 15:16] VITALS: BP 214/86; PULSE 86; RESP 14; TEMP 98.4; O2SAT 98
[2023-08-18] MEDS ORDERED: HYDROCODONE/ACETAMINOPHEN 5/325MG TABLET PO STA (15:19)
[2023-08-18] MEDS ORDERED: CLONIDINE 0.2MG TABLET PO ONE (15:30)
[2023-08-18 15:46] LABS: BASOPHILS % 0.8 % (0.0-2.0); EOSINOPHILS % 1.6 % (0.0-5.0); HEMATOCRIT. 37.5 % (36.0-48.0); HEMOGLOBIN. 12.1 g/dL (12.0-16.0); MEAN CORPUSCULAR HEMOGLOBIN 30.2 pg (28.0-32.0); MEAN CORPUSCULAR HGB CONC 32.4 g/dL (31.0-37.0); MEAN CORPUSCULAR VOLUME 93.1 fL (81.0-99.0); MEAN PLATELET VOLUME 9.5 fl (7.4-10.4); MONOCYTES % 10.1 % (2.0-8.0); NEUTROPHILS % 59.5 % (40.0-76.0); PLATELET 201 x1000/uL (130-400); RED BLOOD CELL COUNT 4.02 mill/uL (4.2-5.4); RED CELL DISTRIBUTION WIDTH 14.9 % (11.6-14.6); WHITE BLOOD COUNT 3.9 x1000/uL (4.5-11.0)
[2023-08-18 15:59] LABS: ALANINE AMINOTRANSFERASE 9 IU/L (10-49); ALBUMIN 4.1 g/dL (3.2-4.8); ASPARTATE AMINOTRANSFERASE 17 IU/L (<34); BILIRUBIN TOTAL 0.4 mg/dL (0.1-1.0); CALCIUM 9.8 mg/dL (8.7-10.4); CARBON DIOXIDE 22 mEq/L (21-32); CHLORIDE 108 mEq/L (98-107); GLUCOSE 128 mg/dL (70-105); POTASSIUM 3.4 mEq/L (3.5-5.1); PROTEIN TOTAL 6.9 g/dL (6.0-8.3); SODIUM 140 mEq/L (136-145); TROPONIN I HIGH SENSITIVITY 13 ng/L (3.0-34); UREA NITROGEN BLOOD 12 mg/dL (9-23)
[2023-08-18] MEDS ORDERED: CLONIDINE 0.1MG TABLET PO NR (16:00)
== END 2023-08-18 22:58 | disposition home or self-care (01) ==
LOC: ER 15:09
DX: I10 Essential (primary) hypertension (principal); R51.9 Headache, unspecified; E11.9 Type 2 diabetes mellitus without complications; H40.9 Unspecified glaucoma; Z79.899 Other long term (current) drug therapy
CPT/HCPCS: 36415; 71045; 80053; 84484; 85025; 93005; 99285

== ENCOUNTER 2023-10-29 10:50 | Emergency (ER) | payer MEDICARE, OTHER ==
[~2023-10-29] VITALS: Ht 162.6 cm; Wt 65.0 kg
[~2023-10-29 10:50] MED LIST changes: +BRIM15DR8 EACHEYE; -BRIM5DRO6 EACHEYE; +LEVO750T68 MT; +METR-167 MT; +PANT40TA51 MT
[2023-10-29 11:07] VITALS: O2SAT 98
[2023-10-29] MEDS ORDERED: ACETAMINOPHEN 325MG TABLET PO STA (12:23)
[2023-10-29] MEDS ORDERED: KETOROLAC 15MG/ML VIAL IV ONE (13:30)
[2023-10-29 13:52] LABS: CLARITY URINE SL HAZY (CLEAR); COLOR URINE YELLOW (YELLOW); GLUCOSE URINE NEGATIVE (NEGATIVE); KETONES URINE NEGATIVE (NEGATIVE); LEUKOCYTE ESTERASE URINE TRACE (NEGATIVE); NITRITE URINE NEGATIVE (NEGATIVE); OCCULT BLOOD URINE NEGATIVE (NEGATIVE); PROTEIN URINE TRACE (NEGATIVE); UROBILINOGEN URINE 0.2 E.U./dL (0.2-1.0)
[2023-10-29 14:03] LABS: SQUAMOUS EPITHELIAL CELL URINE 2+ /lpf (RARE/1+)
[2023-10-29 14:04] LABS: BACTERIA URINE 1+; YEAST URINE NONE SEEN
[2023-10-29 14:20] LABS: EOSINOPHILS % 2.1 % (0.0-5.0); HEMATOCRIT. 32.7 % (36.0-48.0); HEMOGLOBIN. 10.4 g/dL (12.0-16.0); LYMPHOCYTES % 22.2 % (20.0-50.0); MEAN CORPUSCULAR HEMOGLOBIN 30.5 pg (28.0-32.0); MEAN CORPUSCULAR HGB CONC 31.7 g/dL (31.0-37.0); MEAN CORPUSCULAR VOLUME 96.2 fL (81.0-99.0); MEAN PLATELET VOLUME 9.2 fl (7.4-10.4); MONOCYTES % 11.7 % (2.0-8.0); PLATELET 209 x1000/uL (130-400); RED CELL DISTRIBUTION WIDTH 15.2 % (11.6-14.6); WHITE BLOOD COUNT 4.8 x1000/uL (4.5-11.0)
[2023-10-29 14:30] LABS: ALANINE AMINOTRANSFERASE < 7 IU/L (10-49); ALBUMIN 3.8 g/dL (3.2-4.8); ASPARTATE AMINOTRANSFERASE 11 IU/L (<34); BILIRUBIN TOTAL 0.3 mg/dL (0.1-1.0); CARBON DIOXIDE 20 mEq/L (21-32); CHLORIDE 114 mEq/L (98-107); CREATININE 0.9 mg/dL (0.6-1.0); GLUCOSE 112 mg/dL (70-105); POTASSIUM 3.4 mEq/L (3.5-5.1); PROTEIN TOTAL 6.6 g/dL (6.0-8.3); SODIUM 142 mEq/L (136-145); UREA NITROGEN BLOOD 21 mg/dL (9-23)
[2023-10-29] MEDS ORDERED: KETOROLAC 15MG/ML VIAL IV NR (16:45)
[2023-10-29 19:14] VITALS: BP 134/66; PULSE 76; RESP 18; TEMP 98.6
== END 2023-10-29 19:17 | disposition home or self-care (01) ==
LOC: ER 10:55
DX: R10.9 Unspecified abdominal pain (principal); M19.90 Unspecified osteoarthritis, unspecified site; E11.9 Type 2 diabetes mellitus without complications; K57.92 Diverticulitis of intestine, part unspecified, without perforation or abscess without bleeding; I10 Essential (primary) hypertension; H40.9 Unspecified glaucoma; Z79.899 Other long term (current) drug therapy
CPT/HCPCS: 99285; 74176; 96374; 80053; 81003; 83690; 85025; 36415; J1885

== ENCOUNTER 2023-12-11 10:34 | Emergency (ER) | payer MEDICARE, OTHER ==
[~2023-12-11] VITALS: Ht 162.6 cm; Wt 65.0 kg
[2023-12-11 10:35] VITALS: O2SAT 100
[2023-12-11 11:01] VITALS: TEMP 98.2
[2023-12-11 12:56] LABS: BASOPHILS % 0.6 % (0.0-2.0); LYMPHOCYTES % 14.4 % (20.0-50.0); MEAN CORPUSCULAR HEMOGLOBIN 30.7 pg (28.0-32.0); MEAN CORPUSCULAR HGB CONC 32.5 g/dL (31.0-37.0); MEAN CORPUSCULAR VOLUME 94.6 fL (81.0-99.0); MEAN PLATELET VOLUME 9.4 fl (7.4-10.4); MONOCYTES % 11.6 % (2.0-8.0); NEUTROPHILS % 71.4 % (40.0-76.0); PLATELET 194 x1000/uL (130-400); RED BLOOD CELL COUNT 3.59 mill/uL (4.2-5.4); RED CELL DISTRIBUTION WIDTH 14.8 % (11.6-14.6); WHITE BLOOD COUNT 5.9 x1000/uL (4.5-11.0)
[2023-12-11 13:01] LABS: INR 0.9; PROTHROMBIN TIME 10.1 sec (9.6-11.0)
[2023-12-11 13:12] VITALS: BP 157/98; PULSE 84; RESP 22
[2023-12-11] MEDS: MORPHINE SULFATE 4 MG/ML CPJ (NOT FOR IM USE) IV STA (13:12)
[2023-12-11] MEDS: ONDANSETRON HCL 4MG/2ML INJ IV STA (13:13)
[2023-12-11] MEDS: SODIUM CHLORIDE 0.9% 1,000 ML IV ONE (13:13)
[2023-12-11 13:18] LABS: ALANINE AMINOTRANSFERASE < 7 IU/L (10-49); ALBUMIN 4.3 g/dL (3.2-4.8); ASPARTATE AMINOTRANSFERASE 14 IU/L (<34); BILIRUBIN TOTAL 0.3 mg/dL (0.1-1.0); CALCIUM 8.9 mg/dL (8.7-10.4); CARBON DIOXIDE 22 mEq/L (21-32); CHLORIDE 112 mEq/L (98-107); GLUCOSE 115 mg/dL (70-105); POTASSIUM 3.6 mEq/L (3.5-5.1); PROTEIN TOTAL 7.3 g/dL (6.0-8.3); SODIUM 142 mEq/L (136-145); UREA NITROGEN BLOOD 17 mg/dL (9-23)
[2023-12-11 13:20] LABS: ETHANOL BLOOD < 10 mg/dL (<10)
[2023-12-11 14:43] LABS: CLARITY URINE CLEAR (CLEAR); COLOR URINE YELLOW (YELLOW); GLUCOSE URINE NEGATIVE (NEGATIVE); KETONES URINE NEGATIVE (NEGATIVE); LEUKOCYTE ESTERASE URINE 1+ (NEGATIVE); NITRITE URINE NEGATIVE (NEGATIVE); OCCULT BLOOD URINE NEGATIVE (NEGATIVE); PH URINE 7.5 (4.5-8.0); PROTEIN URINE 1+ (NEGATIVE); SPECIFIC GRAVITY URINE 1.007 (1.005-1.030); UROBILINOGEN URINE 0.2 E.U./dL (0.2-1.0)
[2023-12-11 15:06] LABS: BACTERIA URINE 1+; RBC URINE 0-2 /hpf (0-2); SQUAMOUS EPITHELIAL CELL URINE 2+ /lpf (RARE/1+); YEAST URINE NONE SEEN
[2023-12-11] MEDS ORDERED: CEFTRIAXONE 1GM/50ML 50 ML IV ONE (17:00)
[2023-12-11] MEDS ORDERED: CEPH500C2 MT (17:04)
[2023-12-11] MEDS ORDERED: METH-653 MT (17:28)
== END 2023-12-11 17:47 | disposition home or self-care (01) ==
LOC: ER 10:47
DX: N39.0 Urinary tract infection, site not specified (principal); I10 Essential (primary) hypertension; E11.9 Type 2 diabetes mellitus without complications; Z79.82 Long term (current) use of aspirin; Z79.899 Other long term (current) drug therapy
CPT/HCPCS: 80053; 81003; 80320; 83605; 83690; 85025; 85610; 36415; 74176; 96361; 96374; 96375; 99285; J2405; J2270; J7030; Z7610; G0480

== ENCOUNTER 2024-01-30 11:23 | Emergency (ER) | payer MEDICARE, OTHER ==
[~2024-01-30] VITALS: Ht 170.2 cm; Wt 100.0 kg
[~2024-01-30 11:23] MED LIST changes: +CEPH500C2 MT; +METH-653 MT
[2024-01-30 11:24] VITALS: O2SAT 98
[2024-01-30 11:55] LABS: BASOPHILS % 0.7 % (0.0-2.0); EOSINOPHILS % 3.1 % (0.0-5.0); HEMATOCRIT. 35.1 % (36.0-48.0); HEMOGLOBIN. 11.1 g/dL (12.0-16.0); LYMPHOCYTES % 24.9 % (20.0-50.0); MEAN CORPUSCULAR HEMOGLOBIN 29.8 pg (28.0-32.0); MEAN CORPUSCULAR HGB CONC 31.5 g/dL (31.0-37.0); MEAN CORPUSCULAR VOLUME 94.6 fL (81.0-99.0); MEAN PLATELET VOLUME 9.8 fl (7.4-10.4); MONOCYTES % 11.6 % (2.0-8.0); NEUTROPHILS % 59.7 % (40.0-76.0); PLATELET 180 x1000/uL (130-400); RED BLOOD CELL COUNT 3.71 mill/uL (4.2-5.4); RED CELL DISTRIBUTION WIDTH 14.8 % (11.6-14.6)
[2024-01-30 12:05] LABS: INR 0.9; PROTHROMBIN TIME 9.8 sec (9.6-11.0)
[2024-01-30 12:24] LABS: CHLORIDE 114 mEq/L (98-107); POTASSIUM 3.3 mEq/L (3.5-5.1); SODIUM 142 mEq/L (136-145)
[2024-01-30 12:25] LABS: CALCIUM 8.7 mg/dL (8.7-10.4); CARBON DIOXIDE 21 mEq/L (21-32)
[2024-01-30] MEDS: MORPHINE SULFATE 4 MG/ML INJ (FOR IV/IM USE) IV STA (12:27)
[2024-01-30 12:30] LABS: CREATININE 1.2 mg/dL (0.6-1.0); GLUCOSE 104 mg/dL (70-105); UREA NITROGEN BLOOD 28 mg/dL (9-23)
[2024-01-30 12:32] LABS: ALANINE AMINOTRANSFERASE < 7 IU/L (10-49); ALBUMIN 4.2 g/dL (3.2-4.8); ASPARTATE AMINOTRANSFERASE 15 IU/L (<34)
[2024-01-30 12:33] LABS: BILIRUBIN TOTAL 0.4 mg/dL (0.1-1.0); PROTEIN TOTAL 7.2 g/dL (6.0-8.3)
[2024-01-30] MEDS: LABETALOL 5MG/ML SYR 20 MG/4 ML SYRINGE IV ONE ×2 (14:28→19:49)
[2024-01-30] MEDS: MORPHINE SULFATE 4 MG/ML INJ (FOR IV/IM USE) IV ONE (16:12)
[2024-01-30 18:55] LABS: CLARITY URINE CLEAR (CLEAR); COLOR URINE YELLOW (YELLOW); GLUCOSE URINE NEGATIVE (NEGATIVE); KETONES URINE NEGATIVE (NEGATIVE); LEUKOCYTE ESTERASE URINE NEGATIVE (NEGATIVE); NITRITE URINE NEGATIVE (NEGATIVE); OCCULT BLOOD URINE NEGATIVE (NEGATIVE); PROTEIN URINE TRACE (NEGATIVE); SPECIFIC GRAVITY URINE 1.009 (1.005-1.030); UROBILINOGEN URINE 0.2 E.U./dL (0.2-1.0)
[2024-01-30 19:19] LABS: BACTERIA URINE TRACE; RBC URINE NONE SEEN /hpf (0-2); SQUAMOUS EPITHELIAL CELL URINE RARE /lpf (RARE/1+); WBC URINE NONE SEEN /hpf (0-2)
[2024-01-30 20:00] VITALS: BP 144/59; PULSE 61; RESP 15; TEMP 98.3
== END 2024-01-30 20:25 | disposition home or self-care (01) ==
LOC: ER 11:23
DX: R33.9 Retention of urine, unspecified (principal); H40.9 Unspecified glaucoma; E11.9 Type 2 diabetes mellitus without complications; I10 Essential (primary) hypertension
CPT/HCPCS: 99285; 74176; 96374; 96375; 80053; 81003; 82962; 83690; 85025; 85610; 36415; 96376; J3490; J2270

== ENCOUNTER 2024-02-01 23:37 | Emergency (ER) | payer MEDICARE, OTHER ==
[~2024-02-01] VITALS: Ht 165.1 cm; Wt 91.0 kg
[2024-02-01 23:38] VITALS: O2SAT 100
[2024-02-02] MEDS: KETOROLAC 60MG/2ML VIAL IM ONE (00:22)
[2024-02-02 00:25] LABS: BASOPHILS % 0.4 % (0.0-2.0); EOSINOPHILS % 3.1 % (0.0-5.0); HEMATOCRIT. 36.6 % (36.0-48.0); HEMOGLOBIN. 12.1 g/dL (12.0-16.0); LYMPHOCYTES % 17.6 % (20.0-50.0); MEAN CORPUSCULAR HEMOGLOBIN 31.5 pg (28.0-32.0); MEAN CORPUSCULAR HGB CONC 33.1 g/dL (31.0-37.0); MEAN CORPUSCULAR VOLUME 95.2 fL (81.0-99.0); MEAN PLATELET VOLUME 10.1 fl (7.4-10.4); MONOCYTES % 9.3 % (2.0-8.0); NEUTROPHILS % 69.6 % (40.0-76.0); PLATELET 188 x1000/uL (130-400); RED BLOOD CELL COUNT 3.84 mill/uL (4.2-5.4); RED CELL DISTRIBUTION WIDTH 15.3 % (11.6-14.6); WHITE BLOOD COUNT 6.7 x1000/uL (4.5-11.0)
[2024-02-02 00:33] LABS: CARBON DIOXIDE 20 mEq/L (21-32); CHLORIDE 113 mEq/L (98-107); POTASSIUM 3.8 mEq/L (3.5-5.1); SODIUM 139 mEq/L (136-145)
[2024-02-02 00:34] LABS: CALCIUM 9.5 mg/dL (8.7-10.4)
[2024-02-02 00:39] LABS: CREATININE 1.2 mg/dL (0.6-1.0); GLUCOSE 178 mg/dL (70-105); TROPONIN I HIGH SENSITIVITY 13 ng/L (3.0-34); UREA NITROGEN BLOOD 24 mg/dL (9-23)
[2024-02-02 00:40] LABS: ALANINE AMINOTRANSFERASE < 7 IU/L (10-49)
[2024-02-02 00:41] LABS: ASPARTATE AMINOTRANSFERASE 16 IU/L (<34); BILIRUBIN TOTAL 0.4 mg/dL (0.1-1.0); PROTEIN TOTAL 6.9 g/dL (6.0-8.3)
[2024-02-02] MEDS ORDERED: HYDRALAZINE HCL 50MG TABLET PO ONE (01:45)
[2024-02-02] MEDS: HYDRALAZINE HCL 25MG TABLET PO NR (01:54)
[2024-02-02] MEDS ORDERED: AMLODIPINE 10MG TABLET PO ONE (02:15)
[2024-02-02] MEDS: AMLODIPINE 5MG TABLET PO NR (02:50)
[2024-02-02] MEDS: HYDROCODONE/ACETAMINOPHEN 5/325MG TABLET PO ONE (02:50)
[2024-02-02] MEDS ORDERED: NAPR-681 MT (02:57)
[2024-02-02 03:51] VITALS: BP 159/53; PULSE 73; RESP 13; TEMP 98.3
[2024-02-02] MEDS ORDERED: HYDRALAZINE 20MG/ML VIAL IV SCH (06:00)
== END 2024-02-02 04:30 | disposition home or self-care (01) ==
LOC: ER 23:49
DX: M25.511 Pain in right shoulder (principal); E11.9 Type 2 diabetes mellitus without complications; I10 Essential (primary) hypertension; H40.9 Unspecified glaucoma
CPT/HCPCS: 80053; 83880; 85025; 84484; 36415; 71045; 72170; 73030; 93005; 99285; 96372; Z7610 ×2; J1885

== ENCOUNTER 2024-02-09 00:19 | Emergency (ER) | payer MEDICARE, OTHER ==
[~2024-02-09] VITALS: Ht 162.6 cm; Wt 91.0 kg
[~2024-02-09 00:19] MED LIST changes: +NAPR-681 MT
[2024-02-09 00:23] VITALS: TEMP 98.6; O2SAT 98
[2024-02-09 02:18] LABS: BASOPHILS % 0.6 % (0.0-2.0); EOSINOPHILS % 1.7 % (0.0-5.0); HEMATOCRIT. 33.1 % (36.0-48.0); HEMOGLOBIN. 11.1 g/dL (12.0-16.0); LYMPHOCYTES % 11.6 % (20.0-50.0); MEAN CORPUSCULAR HEMOGLOBIN 30.8 pg (28.0-32.0); MEAN CORPUSCULAR HGB CONC 33.4 g/dL (31.0-37.0); MEAN CORPUSCULAR VOLUME 92.1 fL (81.0-99.0); MONOCYTES % 12.5 % (2.0-8.0); NEUTROPHILS % 73.6 % (40.0-76.0); PLATELET 181 x1000/uL (130-400); RED BLOOD CELL COUNT 3.59 mill/uL (4.2-5.4); WHITE BLOOD COUNT 6.7 x1000/uL (4.5-11.0)
[2024-02-09 02:23] LABS: CHLORIDE 113 mEq/L (98-107); POTASSIUM 3.4 mEq/L (3.5-5.1); SODIUM 140 mEq/L (136-145)
[2024-02-09 02:24] LABS: CARBON DIOXIDE 20 mEq/L (21-32)
[2024-02-09 02:25] LABS: CALCIUM 9.3 mg/dL (8.7-10.4)
[2024-02-09 02:29] LABS: CREATININE 1.1 mg/dL (0.6-1.0); GLUCOSE 109 mg/dL (70-105); UREA NITROGEN BLOOD 27 mg/dL (9-23)
[2024-02-09 02:30] LABS: TROPONIN I HIGH SENSITIVITY 12 ng/L (3.0-34)
[2024-02-09 02:48] LABS: BETA HYDROXYBUTYRATE 0.2 mMol/L (0.0-0.3)
[2024-02-09 04:35] LABS: TROPONIN I HIGH SENSITIVITY 15 ng/L (3.0-34)
[2024-02-09 06:11] VITALS: BP 128/76; PULSE 80; RESP 18
== END 2024-02-09 06:11 | disposition home or self-care (01) ==
LOC: ER 00:19
DX: M54.50 Low back pain, unspecified (principal); R53.1 Weakness; E11.9 Type 2 diabetes mellitus without complications; I10 Essential (primary) hypertension; R41.0 Disorientation, unspecified; Z79.899 Other long term (current) drug therapy
CPT/HCPCS: 36415; 71045; 74176; 80048; 82010; 83605; 84484; 85025; 93005; 99285

== ENCOUNTER 2024-02-10 21:13 | Inpatient (IN) | payer MEDICARE, OTHER ==
[~2024-02-10] VITALS: Ht 152.4 cm; Wt 72.6 kg
[2024-02-10] MEDS: LIDOCAINE HCL 1% 20ML VIAL (Pyxis) INJ INFIL ONE (21:30)
[2024-02-10 22:42] LABS: BASOPHILS % 0.5 % (0.0-2.0); EOSINOPHILS % 3.1 % (0.0-5.0); HEMATOCRIT. 38.2 % (36.0-48.0); HEMOGLOBIN. 12.3 g/dL (12.0-16.0); LYMPHOCYTES % 17.5 % (20.0-50.0); MEAN CORPUSCULAR HEMOGLOBIN 30.5 pg (28.0-32.0); MEAN CORPUSCULAR HGB CONC 32.1 g/dL (31.0-37.0); MEAN PLATELET VOLUME 9.6 fl (7.4-10.4); MONOCYTES % 12.2 % (2.0-8.0); NEUTROPHILS % 66.7 % (40.0-76.0); PLATELET 191 x1000/uL (130-400); RED BLOOD CELL COUNT 4.02 mill/uL (4.2-5.4); RED CELL DISTRIBUTION WIDTH 15.6 % (11.6-14.6); WHITE BLOOD COUNT 6.2 x1000/uL (4.5-11.0)
[2024-02-10 22:47] LABS: CHLORIDE 113 mEq/L (98-107); POTASSIUM 3.2 mEq/L (3.5-5.1); SODIUM 141 mEq/L (136-145)
[2024-02-10 22:48] LABS: CALCIUM 10.2 mg/dL (8.7-10.4); CARBON DIOXIDE 21 mEq/L (21-32)
[2024-02-10] MEDS: KETOROLAC 15MG/ML VIAL IV ONE (22:50)
[2024-02-10 22:53] LABS: CREATININE 1.1 mg/dL (0.6-1.0); GLUCOSE 88 mg/dL (70-105); UREA NITROGEN BLOOD 21 mg/dL (9-23)
[2024-02-10 22:55] LABS: ALANINE AMINOTRANSFERASE < 7 IU/L (10-49); ALBUMIN 4.3 g/dL (3.2-4.8); ASPARTATE AMINOTRANSFERASE 17 IU/L (<34); PHOSPHORUS 3.9 mg/dL (2.5-4.9)
[2024-02-10 22:56] LABS: BILIRUBIN TOTAL 0.6 mg/dL (0.1-1.0); PROTEIN TOTAL 7.3 g/dL (6.0-8.3)
[2024-02-10] MEDS ORDERED: LABETALOL 5MG/ML 4ML VIAL IV ONE (23:00)
[2024-02-10] MEDS: POLYETHYLENE GLYCOL 3350 (17GM) 1 DOSE PACK PO ONE (23:02)
[2024-02-10] MEDS: SENNOSIDES/DOCUSATE SOD 8.6/50MG TABLET PO STA (23:07)
[2024-02-10] MEDS: LABETALOL 5MG/ML 4ML INJ IV NR (23:14)
[2024-02-10] MEDS: HYDROMORPHONE HCL/PF 2MG/ML CPJ IV ONE (23:31)
[2024-02-11] MEDS: HYDRALAZINE HCL 100MG TABLET PO ONE (00:46)
[2024-02-11] MEDS ORDERED: ONDANSETRON HCL 4MG/2ML INJ IV PRN (14:45)
[2024-02-11] MEDS ORDERED: ACETAMINOPHEN 325MG TABLET PO PRN (14:45)
[2024-02-11] MEDS ORDERED: NALOXONE HCL 0.4MG/ML VIAL IV PRN (15:15)
[2024-02-11] MEDS: HYDROCODONE/ACETAMINOPHEN 5/325MG TABLET PO PRN (15:19)
[2024-02-11] MEDS: SENNOSIDES 8.6MG TABLET PO SCH (15:20)
[2024-02-11] MEDS: AMLODIPINE 10MG TABLET PO SCH (15:20)
[2024-02-11] MEDS ORDERED: LOSA25TA26 MT (15:36)
[2024-02-11 15:39] VITALS: BP 170/64; PULSE 71; RESP 18; TEMP 97.7
[2024-02-11] MEDS ORDERED: DEXTROSE 50% WATER 50ML SYRINGE IV PRN (16:30)
[2024-02-11] MEDS: CLONIDINE 0.1MG TABLET PO SCH (17:25)
[2024-02-11] MEDS: INSULIN LISPRO 100 UNITS/ML SUBCUT SCH (17:26)
[2024-02-11] MEDS: HYDRALAZINE HCL 100MG TABLET PO SCH (17:26)
[2024-02-11] MEDS: GABAPENTIN 100MG CAPSULE PO SCH (17:26)
[2024-02-11] MEDS: BLOOD SUGAR DIAGNOSTIC STRIP TEST SCH (17:26)
[2024-02-11 20:00] VITALS: BP_SYST 136; BP_SYST 159; BP_DIAS 53; BP_DIAS 91; PULSE 70; PULSE 92; RESP 18; TEMP 97.1; TEMP 97.5
[2024-02-11] MEDS: ENOXAPARIN 40MG/0.4ML SYR SUBCUT SCH (21:52)
[2024-02-11] MEDS: CLONIDINE 0.1MG TABLET PO PRN (21:53)
[2024-02-11] MEDS: ATORVASTATIN CALCIUM 40MG TABLET PO SCH (21:53)
[2024-02-12 03:08] LABS: CLARITY URINE TURBID (CLEAR); COLOR URINE YELLOW (YELLOW); GLUCOSE URINE NEGATIVE (NEGATIVE); KETONES URINE NEGATIVE (NEGATIVE); LEUKOCYTE ESTERASE URINE 3+ (NEGATIVE); NITRITE URINE NEGATIVE (NEGATIVE); OCCULT BLOOD URINE NEGATIVE (NEGATIVE); PH URINE 5.5 (4.5-8.0); PROTEIN URINE 1+ (NEGATIVE); SPECIFIC GRAVITY URINE 1.011 (1.005-1.030); UROBILINOGEN URINE 0.2 E.U./dL (0.2-1.0)
[2024-02-12 03:22] LABS: *AMPHETAMINES SCREEN URINE NEGATIVE (NEGATIVE); *BARBITURATES SCREEN URINE NEGATIVE (NEGATIVE); *BENZODIAZEPINES SCREEN URINE NEGATIVE (NEGATIVE); *COCAINE SCREEN URINE NEGATIVE (NEGATIVE); CANNABINOID URINE SCREEN NEGATIVE (NEGATIVE); ECSTASY MDMA SCREEN URINE NEGATIVE (NEGATIVE); METHADONE URINE SCREEN NEGATIVE (NEGATIVE); OPIATES URINE SCREEN PRESUMPTIVE POSITIVE (NEGATIVE); PHENCYCLIDINE URINE SCREEN NEGATIVE (NEGATIVE)
[2024-02-12] MEDS: OMEPRAZOLE 20MG CAPSULE EXTENDED RELEASE PO SCH (06:13)
[2024-02-12 08:00] VITALS: BP 167/62; PULSE 61; RESP 20; TEMP 97.5
[2024-02-12 08:00] LABS: WBC URINE 15-25 /hpf (0-2)
[2024-02-12 08:01] LABS: RBC URINE 0-2 /hpf (0-2); SQUAMOUS EPITHELIAL CELL URINE 1+ /lpf (RARE/1+)
[2024-02-12 08:01] LABS: BASOPHILS % 0.6 % (0.0-2.0); EOSINOPHILS % 3.6 % (0.0-5.0); HEMATOCRIT. 35.6 % (36.0-48.0); HEMOGLOBIN. 11.7 g/dL (12.0-16.0); LYMPHOCYTES % 25.6 % (20.0-50.0); MEAN CORPUSCULAR HEMOGLOBIN 30.7 pg (28.0-32.0); MEAN CORPUSCULAR HGB CONC 32.7 g/dL (31.0-37.0); MEAN CORPUSCULAR VOLUME 93.8 fL (81.0-99.0); MEAN PLATELET VOLUME 9.9 fl (7.4-10.4); MONOCYTES % 14.6 % (2.0-8.0); NEUTROPHILS % 55.6 % (40.0-76.0); PLATELET 185 x1000/uL (130-400); RED CELL DISTRIBUTION WIDTH 15.4 % (11.6-14.6); WHITE BLOOD COUNT 5.9 x1000/uL (4.5-11.0)
[2024-02-12 08:02] LABS: BACTERIA URINE 3+
[2024-02-12 08:09] LABS: CARBON DIOXIDE 21 mEq/L (21-32); CHLORIDE 111 mEq/L (98-107); POTASSIUM 4.1 mEq/L (3.5-5.1); SODIUM 139 mEq/L (136-145)
[2024-02-12 08:10] LABS: CALCIUM 9.8 mg/dL (8.7-10.4)
[2024-02-12 08:14] LABS: CREATININE 1.2 mg/dL (0.6-1.0)
[2024-02-12 08:15] LABS: GLUCOSE 125 mg/dL (70-105); TRIGLYCERIDE 75 mg/dL (0-150); UREA NITROGEN BLOOD 22 mg/dL (9-23)
[2024-02-12 08:16] LABS: ALBUMIN 4.1 g/dL (3.2-4.8); LDL CHOLESTEROL 78 mg/dL (5-100)
[2024-02-12 08:17] LABS: ALANINE AMINOTRANSFERASE < 7 IU/L (10-49); ASPARTATE AMINOTRANSFERASE 16 IU/L (<34); BILIRUBIN DIRECT 0.1 mg/dL (<=3.0); BILIRUBIN TOTAL 0.4 mg/dL (0.1-1.0); CHOLESTEROL 125 mg/dL (<200); HDL CHOLESTEROL 41 mg/dL (>65); PHOSPHORUS 3.9 mg/dL (2.5-4.9); PROTEIN TOTAL 6.7 g/dL (6.0-8.3)
[2024-02-12] MEDS: CLOPIDOGREL 75MG TABLET PO SCH (08:57)
[2024-02-12] MEDS: ASPIRIN 81MG EC TABLET PO SCH (08:58)
[2024-02-12] MEDS: LIDOCAINE 5% PATCH TOP SCH (11:45)
[2024-02-12] MEDS: LOSARTAN 50 MG TABLET PO SCH (11:46)
[2024-02-12] MEDS: CEFTRIAXONE 1GM/50ML 50 ML IV NR (11:54)
[2024-02-12] MEDS: LORAZEPAM 2MG/ML INJ IV NR (11:54)
[2024-02-12] MEDS: SODIUM CHLORIDE 0.9% 1,000 ML IV SCH (11:55)
[2024-02-12 12:00] VITALS: BP 183/68; PULSE 72; RESP 20; TEMP 97.9
[2024-02-12 16:00] VITALS: BP 142/69; PULSE 76; RESP 20; TEMP 97.4
[2024-02-12 20:00] VITALS: BP 156/64; PULSE 68; RESP 20; TEMP 95
[2024-02-13 05:55] LABS: BASOPHILS % 0.5 % (0.0-2.0); EOSINOPHILS % 4.7 % (0.0-5.0); HEMATOCRIT. 35.8 % (36.0-48.0); HEMOGLOBIN. 11.8 g/dL (12.0-16.0); LYMPHOCYTES % 22.8 % (20.0-50.0); MEAN CORPUSCULAR HEMOGLOBIN 30.5 pg (28.0-32.0); MEAN CORPUSCULAR VOLUME 92.5 fL (81.0-99.0); MONOCYTES % 13.1 % (2.0-8.0); NEUTROPHILS % 58.9 % (40.0-76.0); PLATELET 174 x1000/uL (130-400); RED BLOOD CELL COUNT 3.87 mill/uL (4.2-5.4); RED CELL DISTRIBUTION WIDTH 15.2 % (11.6-14.6); WHITE BLOOD COUNT 5.1 x1000/uL (4.5-11.0)
[2024-02-13 05:56] LABS: CARBON DIOXIDE 21 mEq/L (21-32); CHLORIDE 112 mEq/L (98-107); POTASSIUM 4.1 mEq/L (3.5-5.1); SODIUM 140 mEq/L (136-145)
[2024-02-13 05:57] LABS: CALCIUM 9.8 mg/dL (8.7-10.4)
[2024-02-13 06:02] LABS: GLUCOSE 104 mg/dL (70-105)
[2024-02-13 06:03] LABS: ALANINE AMINOTRANSFERASE < 7 IU/L (10-49)
[2024-02-13 06:04] LABS: ALBUMIN 4.1 g/dL (3.2-4.8); ASPARTATE AMINOTRANSFERASE 15 IU/L (<34); BILIRUBIN DIRECT 0.1 mg/dL (<=3.0); BILIRUBIN TOTAL 0.3 mg/dL (0.1-1.0); PHOSPHORUS 3.4 mg/dL (2.5-4.9); PROTEIN TOTAL 6.7 g/dL (6.0-8.3)
[2024-02-13 06:09] LABS: UREA NITROGEN BLOOD 20 mg/dL (9-23)
[2024-02-13 08:00] VITALS: BP 216/91; PULSE 75; RESP 20; TEMP 96.9
[2024-02-13] MEDS: CEFTRIAXONE 1GM/50ML 50 ML IV SCH (09:04)
[2024-02-13 12:00] VITALS: BP 151/62; PULSE 79; RESP 20; TEMP 97
[2024-02-13] MEDS: HYDROCODONE/ACETAMINOPHEN 10/325MG TABLET PO PRN (12:51)
[2024-02-13] MEDS: LACTULOSE 20G/30ML UDC PO PRN (12:51)
[2024-02-13 16:00] VITALS: BP_SYST 160; BP_SYST 164; BP_DIAS 75; BP_DIAS 91; PULSE 82; PULSE 85; RESP 20; TEMP 96.9; TEMP 97.2
[2024-02-13 20:00] VITALS: BP 160/68; PULSE 82; RESP 19; TEMP 97.5
[2024-02-14] VITALS: BP 160/77; PULSE 73; RESP 17; TEMP 98.2
[2024-02-14 04:00] VITALS: BP 150/69; PULSE 64; RESP 18; TEMP 97
[2024-02-14] MEDS: FAMOTIDINE 20MG TABLET PO SCH (06:56)
[2024-02-14 08:00] VITALS: BP 192/68; PULSE 66; RESP 19; TEMP 97.1
[2024-02-14] MEDS: NA PHOS,M-B/NA PHOS,DI-BA ENEMA 118ML PR NR (10:40)
[2024-02-14] MEDS: MAGNESIUM/ALUMINUM HYDROXIDE/SIMETHICONE 30ML UDC PO PRN (12:44)
[2024-02-14] MEDS: LOSARTAN 50 MG TABLET PO NR (12:44)
[2024-02-14] MEDS: LORAZEPAM 0.5MG TABLET PO NR (12:52)
[2024-02-14 12:54] LABS: TROPONIN I HIGH SENSITIVITY 5 ng/L (3.0-34)
[2024-02-14 15:08] VITALS: BP 155/62
[2024-02-14 16:00] VITALS: BP 179/73; PULSE 70; RESP 19; TEMP 97.3
[2024-02-14] MEDS: NIFEDIPINE XL 60MG TAB PO SCH (18:32)
[2024-02-14] MEDS: SORBITOL 70% SOLN 30ML PO NR (18:45)
[2024-02-14 20:00] VITALS: BP 133/55; PULSE 67; RESP 18; TEMP 97
[2024-02-15] VITALS: BP 113/68; PULSE 68; RESP 18; TEMP 97.5
[2024-02-15 08:00] VITALS: BP 175/76; PULSE 72; RESP 20; TEMP 97.9
[2024-02-15] MEDS: NIFEDIPINE XL 30MG TAB PO NR (10:04)
[2024-02-15 12:00] VITALS: BP 183/70; PULSE 85; RESP 18; TEMP 97.5
[2024-02-15] MEDS: AMLODIPINE 10MG TABLET PO SCH (13:27)
[2024-02-15] MEDS: CARVEDILOL 6.25 MG TABLET PO SCH (15:07)
[2024-02-15 16:00] VITALS: BP 142/54; PULSE 60; RESP 19; TEMP 98.1
[2024-02-15 16:42] VITALS: BP 150/75; PULSE 80; TEMP 97.7; O2SAT 96
[2024-02-15] MEDS ORDERED: NIFE-32 MT (16:42)
[2024-02-15] MEDS ORDERED: LEVO-65 MT (16:44)
[2024-02-15] MEDS ORDERED: NIFEDIPINE XL 60MG TAB PO SCH (17:00)
[2024-02-15] MEDS ORDERED: HYDRALAZINE HCL 50MG TABLET PO SCH (17:00)
== END 2024-02-15 17:45 | disposition home or self-care (01) | DRG 463 ==
LOC: ER 21:13 → EDBEDREQ 21:37 → 5WST 02-11 00:04 → EDBEDREQ 02-11 00:14 → 6EST 02-11 14:47
PROVIDERS: ADMIT Internal Medicine; ATTEND Internal Medicine
DX: N39.0 Urinary tract infection, site not specified (principal); N17.9 Acute kidney failure, unspecified; D25.9 Leiomyoma of uterus, unspecified; M48.061 Spinal stenosis, lumbar region without neurogenic claudication; E11.9 Type 2 diabetes mellitus without complications; I10 Essential (primary) hypertension; G89.29 Other chronic pain; F11.20 Opioid dependence, uncomplicated; K59.09 Other constipation; Z20.822 Contact with and (suspected) exposure to COVID-19; R07.89 Other chest pain; M51.36 Other intervertebral disc degeneration, lumbar region; M47.816 Spondylosis without myelopathy or radiculopathy, lumbar region; E78.00 Pure hypercholesterolemia, unspecified; K57.30 Diverticulosis of large intestine without perforation or abscess without bleeding; Z82.49 Family history of ischemic heart disease and other diseases of the circulatory system; Z83.3 Family history of diabetes mellitus; Z86.73 Personal history of transient ischemic attack (TIA), and cerebral infarction without residual deficits
CPT/HCPCS: 36415; 72148; 74018; 76770; 80048; 80053; 80061; 80076; 80305; 81003; 82962; 83036; 83735; 84100; 84484; 85025; 87426; 93306; 93970; 97162; 97166; 99285; C1893; J0696; J1170; J1650; J1885; J2060; J3490; J7030

== ENCOUNTER 2024-06-27 18:51 | Emergency (ER) | payer MEDICARE, OTHER ==
[~2024-06-27] VITALS: Ht 162.6 cm; Wt 105.0 kg
[~2024-06-27 18:51] MED LIST changes: +ACET250T29 PO; -ACET250T3 PO; +LEVO-65 MT; +LOSA25TA26 MT; +NIFE-32 MT
[2024-06-27 18:58] VITALS: TEMP 98.6; O2SAT 97
[2024-06-27 23:14] VITALS: BP 169/81; PULSE 95; RESP 16; O2SAT 98
== END 2024-06-27 23:15 | disposition home or self-care (01) ==
LOC: ER 18:51
DX: M79.604 Pain in right leg (principal); M25.561 Pain in right knee; M25.562 Pain in left knee; E11.9 Type 2 diabetes mellitus without complications; E78.00 Pure hypercholesterolemia, unspecified; I10 Essential (primary) hypertension; Z86.73 Personal history of transient ischemic attack (TIA), and cerebral infarction without residual deficits; Z79.899 Other long term (current) drug therapy
CPT/HCPCS: 93971; 99284

== ENCOUNTER 2024-06-28 19:57 | Emergency (ER) | payer MEDICARE, OTHER ==
[~2024-06-28] VITALS: Ht 167.6 cm; Wt 90.0 kg
[2024-06-28 20:02] VITALS: O2SAT 98
[2024-06-28 21:22] LABS: HEMATOCRIT 38.1 % (36.0-48.0); HEMOGLOBIN 12.6 g/dL (12.0-16.0); MEAN CORPUSCULAR HEMOGLOBIN 30.8 pg (28.0-32.0); MEAN CORPUSCULAR HGB CONC 33.1 g/dL (31.0-37.0); PLATELET 214 x1000/uL (130-400); RED CELL DISTRIBUTION WIDTH 14.7 % (11.6-14.6); WHITE BLOOD COUNT 6.7 x1000/uL (4.5-11.0)
[2024-06-28 21:43] LABS: CARBON DIOXIDE 21 mEq/L (21-32); CHLORIDE 106 mEq/L (98-107); POTASSIUM 3.1 mEq/L (3.5-5.1); SODIUM 139 mEq/L (136-145)
[2024-06-28 21:44] LABS: CALCIUM 9.7 mg/dL (8.7-10.4)
[2024-06-28 21:48] LABS: CREATININE 1.2 mg/dL (0.6-1.0)
[2024-06-28 21:49] LABS: GLUCOSE 153 mg/dL (70-105); UREA NITROGEN BLOOD 16 mg/dL (9-23)
[2024-06-28 21:50] LABS: ALANINE AMINOTRANSFERASE < 7 IU/L (10-49); ALBUMIN 4.3 g/dL (3.2-4.8); ASPARTATE AMINOTRANSFERASE 16 IU/L (<34)
[2024-06-28 21:51] LABS: BILIRUBIN TOTAL 0.3 mg/dL (0.1-1.0); PROTEIN TOTAL 7.3 g/dL (6.0-8.3)
[2024-06-28] MEDS: POTASSIUM CHLORIDE 20MEQ TABLET SR PO NR (23:31)
[2024-06-28 23:42] VITALS: BP 189/99; PULSE 74; RESP 16; TEMP 36.89184; O2SAT 97
== END 2024-06-29 00:07 | disposition home or self-care (01) ==
LOC: ER 19:57
DX: E87.6 Hypokalemia (principal); R53.1 Weakness; E11.9 Type 2 diabetes mellitus without complications; E78.00 Pure hypercholesterolemia, unspecified; I10 Essential (primary) hypertension; Z86.73 Personal history of transient ischemic attack (TIA), and cerebral infarction without residual deficits; Z79.899 Other long term (current) drug therapy
CPT/HCPCS: 36415; 80053; 82962; 85027; 99283